=== PATIENT | male | born 1930 | race Caucasian/White ===

== ENCOUNTER → 2016-05-30 | Outpatient (CLI) | payer MEDICARE ==
--- NOTE | 2016-05-30 13:46 | US ---
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 FINDINGS: Liver Length: 16.5 cm Gallbladder Wall: 1.1 cm CBD: 0.3 cm Spleen: 10.5 cm versus 14.[address] Right Kidney: 10.9 c 4.4 x 3.9 cm Left Kidney: 10.3x 6.1 x 5.2 cm Pancreas: No gross abnormality Liver: Overall homogeneous echotexture without focal lesion. Gallbladder: There is wall echo shadow complex compatible with a stone filled gallbladder lumen. Evidence for sonographic Waggoner's sign: No CBD: Within normal limits Spleen: Within normal limits Right Kidney: There is a 3 mm cortical calcification probably relating to scar in the upper pole. No hydronephrosis. Left Kidney: No hydronephrosis. There is a tiny 5 mm cortical cyst in the lower pole. Upper IVC: Not well seen. Abd Aorta: Some scattered atherosclerotic changes seen without evidence for aneurysm. IMPRESSION: 1. Spleen measures within normal limits of size, decreased from CT of 10/16/2014. 2. Stone packed gallbladder.
== END | disposition home or self-care (01) ==
LOC: RADUSWWP 09:10
PROVIDERS: ATTEND Internal Medicine Rheumatology
DX: K80.20 Calculus of gallbladder without cholecystitis without obstruction (principal)
CPT/HCPCS: 76700

== ENCOUNTER 2016-06-20 08:57 | Day surgery (SDC) | payer MEDICARE ==
[2016-06-19 09:20] VITALS: BMI 35.5
[~2016-06-20 08:57] MED LIST: FAMOTIDINE 20 MG/2 ML VIAL IV PRN; HYDROmorphone 1 MG/ML 1 ML SYRINGE IVP PRN; LIDOCAINE 1% 20 ML VIAL (10MG/ML) FOR IV START INTRADERMA PRN; MIDAZOLAM 2 MG/2 ML VIAL IV PRN; ONDANSETRON 4 MG/2 ML VIAL IVP PRN; ceFAZolin 2 GM in SODIUM CHLORIDE 0.9% 100 ML IVPB ONE
[2016-06-20 09:37] VITALS: TEMP 98.1
[2016-06-20] MEDS: LACTATED RINGERS 1,000 ML IV SCH ×2 (09:41→10:06)
[2016-06-20 09:57] LABS: Glucose,Whole Blood 104 mg/dL (75-99)
[2016-06-20 10:00] LABS: INR 3.1 (<1.1); Prothrombin Time 29.9 sec (9.0-12.0)
[2016-06-20] MEDS ORDERED: HYDROCORTISONE SUCCINATE 100 MG/2 ML VIAL IV STA (10:04)
[2016-06-20] MEDS ORDERED: fentaNYL (PF) 50 MCG/ML 2 ML AMP ONE (10:08)
[2016-06-20] MEDS ORDERED: PROPOFOL 10 MG/ML 20 ML VIAL IV ONE (10:08)
[2016-06-20] MEDS ORDERED: HYDROCORTISONE SUCCINATE 100 MG/2 ML VIAL ONE (10:08)
[2016-06-20] MEDS ORDERED: MIDAZOLAM 2 MG/2 ML VIAL ONE (10:08)
[2016-06-20] MEDS ORDERED: LIDOCAINE 1% INJ 10MG/ML (20 ML MDV) ONE (10:08)
[2016-06-20] MEDS ORDERED: KETAMINE 10 MG/ML 20 ML VIAL ONE (10:08)
--- NOTE | 2016-06-20 10:44 | P.PCN ---
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 He is a type II diabetic. He has a profound neuropathy. Operative Findings: On amputation at the base of the toe the bone was fairly healthy in the proximal phalanx and the tissues had good blood supply without evidence of purulence. There was a fracture dislocation in the midportion of the toe. Description of Procedure: With the patient in supine position, under benefit of IV sedation, we prepped and draped in standard fashion. We made a fishmouth incision at the base of the toe leaving enough room to close skin flaps. This was taken directly down to the bone using sharp dissection. The distal portion was removed through the joint. We used a rongeur to take the bone up well above the skin line. Nonviable tendons were excised using sharp dissection. Hemostasis was satisfactory with pressure. The incision was closed with interrupted nylon suture. Hemostasis was satisfactory. Sterile dressings were applied. The patient tolerated the procedure well and was taken to recovery room in stable condition.
[2016-06-20 10:49] VITALS: RESP 18
[2016-06-20 11:19] VITALS: BP 129/68; PULSE 60
[2016-06-20 11:42] LABS: Glucose,Whole Blood 104 mg/dL (75-99)
== END 2016-06-20 11:49 | disposition home or self-care (01) ==
LOC: OR 08:57
PROVIDERS: ATTEND Thoracic Surgery (Cardiothoracic Vascular Surgery)
DX: E11.69 Type 2 diabetes mellitus with other specified complication (principal); E11.42 Type 2 diabetes mellitus with diabetic polyneuropathy; M86.171 Other acute osteomyelitis, right ankle and foot; I50.9 Heart failure, unspecified; I10 Essential (primary) hypertension; E78.5 Hyperlipidemia, unspecified; I48.91 Unspecified atrial fibrillation; M06.9 Rheumatoid arthritis, unspecified; K21.9 Gastro-esophageal reflux disease without esophagitis; Z95.1 Presence of aortocoronary bypass graft; Z95.810 Presence of automatic (implantable) cardiac defibrillator; Z79.82 Long term (current) use of aspirin; Z79.01 Long term (current) use of anticoagulants; Z79.84 Long term (current) use of oral hypoglycemic drugs; Z79.52 Long term (current) use of systemic steroids; Z79.51 Long term (current) use of inhaled steroids; Z79.899 Other long term (current) drug therapy; Z86.14 Personal history of Methicillin resistant Staphylococcus aureus infection; Z87.891 Personal history of nicotine dependence
CPT/HCPCS: 28160; 85610; J2250; J1720; J0690; J2001; J3010; J2704; 99152; 99153

== ENCOUNTER 2016-07-01 13:59 | Inpatient (IN) | payer MEDICARE ==
[2016-07-01] MEDS ORDERED: ACETAMINOPHEN TAB 500 MG TAB PO STA (14:15)
[2016-07-01] MEDS ORDERED: DIPH,PERTUS(ACELL)TETVAC-LF 0.5 ML VIAL IM ONE (14:16)
--- NOTE | 2016-07-01 14:19 | ED ---
General Adult HPI - General Chief complaint: Fall Stated complaint: Fall Time Seen by Provider: 07/01/16 14:09 Source: patient, EMS, RN notes reviewed Mode of arrival: EMS Limitations: no limitations - History of Present Illness Initial comments: Patient is a pleasant 86-year-old male presenting to the emergency department following a fall. Patient states he slid out of his wheelchair. Patient denies any significant injury. Patient denies any head injury or loss of consciousness. Patient did have some bleeding of his left leg. Patient did notice a fever today. Patient denies any upper respiratory symptoms. No cough or difficulty breathing. No abdominal pain. No dysuria. Patient denies any confusion. Patient had a recent right toe amputation. - Related Data Home Medications Medication Instructions Recorded Confirmed Aspirin 81 mg PO DAILY 02/01/14 07/01/16 Folic Acid 1 mg PO HS 02/01/14 07/01/16 Lansoprazole [Prevacid] 30 mg PO DAILY 02/01/14 07/01/16 Tamsulosin HCl 0.4 mg PO HS 02/01/14 07/01/16 Cetirizine HCl [Zyrtec] 10 mg PO DAILY 12/18/15 07/01/16 Methotrexate Sodium (Pf) 25 mg SQ FR 12/19/15 07/01/16 [Methotrexate 25 mg/ml Vial] Carvedilol [Coreg] 3.125 mg PO BID 07/01/16 07/01/16 Cephalexin [Keflex] 500 mg PO Q12HR 07/01/16 07/01/16 Furosemide [Lasix] 40 mg PO DAILY 07/01/16 07/01/16 Levothyroxine Sodium [Synthroid] 25 mcg PO DAILY 07/01/16 07/01/16 Warfarin Sodium [Coumadin] 2.5 mg PO DAILY 07/01/16 07/01/16 Previous Rx's Medication Instructions Recorded metFORMIN HCL [Glucophage] 500 mg PO BID #60 tab 02/11/16 Allergies Allergy/AdvReac Type Severity Reaction Status Date / Time No Known Allergies Allergy Verified 07/01/16 15:12 Review of Systems ROS Statement: Those systems with pertinent positive or pertinent negative responses have been documented in the HPI. ROS Other: All systems not noted in ROS Statement are negative. Constitutional: Reports: fever Eyes: Denies: eye pain ENT: Denies: ear pain, throat pain Respiratory: Denies: cough, dyspnea Cardiovascular: Denies: chest pain Endocrine: Denies: fatigue Gastrointestinal: Denies: abdominal pain Genitourinary: Denies: dysuria Musculoskeletal: Denies: back pain Skin: Denies: rash Neurological: Denies: weakness Past Medical History Past Medical History: Atrial Fibrillation, Heart Failure, Diabetes Mellitus, Hyperlipidemia, Hypertension, Rheumatoid Arthritis (RA), Skin Disorder Additional Past Medical History / Comment(s): SKIN CA, right foot swollen, wound on left lower leg History of Any Multi-Drug Resistant Organisms: MRSA Date of last positivie culture/infection: 05-18-2016 MDRO Source:: left leg Past Surgical History: AICD, Coronary Bypass/CABG, Hernia Repair, Pacemaker Additional Past Surgical History / Comment(s): CABG in 1994 Past Anesthesia/Blood Transfusion Reactions: No Reported Reaction Type of Cardiac Device: AICD Device Placement Date:: 2013 Past Psychological History: No Psychological Hx Reported Smoking Status: Former smoker Past Alcohol Use History: Occasional Additional Past Alcohol Use History / Comment(s): STARTED SMOKING 1949, QUIT 1999, SMOKED 1 PPD Past Drug Use History: None Reported - Past Family History Mother Family Medical History: Cancer Additional Family Medical History / Comment(s): FROM BREAST CANCER AGE 50 Father History Unknown: Yes Additional Family Medical History / Comment(s): PT DID'NT KNOW HIS DAD-LEFT WHEN PT WAS AGE 3 General Exam Limitations: no limitations General appearance: alert, in no apparent distress Head exam: Present: atraumatic, normocephalic Eye exam: Present: normal appearance, PERRL ENT exam: Present: normal oropharynx Neck exam: Absent: tenderness Respiratory exam: Present: normal lung sounds bilaterally Cardiovascular Exam: Present: regular rate, normal rhythm GI/Abdominal exam: Present: soft. Absent: distended, tenderness, guarding, rebound, rigid Extremities exam: Present: other (Right second toe amputation with mild erythema and minimal purulent discharge. Sutures still remain in place.) Back exam: Present: normal inspection. Absent: tenderness Neurological exam: Present: alert, CN II-XII intact. Absent: motor sensory deficit Expanded Motor strength exam: RUE: 5, LUE: 5, RLE: 5, LLE: 5 Psychiatric exam: Present: normal affect, normal mood Skin exam: Present: erythema (Mild near amputation site right second toe), other (Superficial skin avulsion left lower leg.) Course Vital Signs 07/01/16 07/01/16 07/01/16 14:02 15:05 16:39 Temperature 102.3 F H 100.9 F H 100.7 F H Pulse Rate 70 72 75 Respiratory 16 20 20 Rate Blood Pressure 110/58 122/66 114/67 O2 Sat by Pulse 99 97 Oximetry - Reevaluation(s) Reevaluation #1: 07/01/16 15:54 Further history taken from family who states patient was just started on Keflex yesterday for chest congestion. Medical Decision Making - Medical Decision Making Patient reexamined. Patient and family updated. Case was discussed in detail with Dr. Nicole, who will admit for Dr. krishnan with consult for Dr. Jaffe. Patient does meet sepsis criteria. IV antibiotic will be started. Lactic acid less than 2. Admission orders written. - Lab Data Result diagrams: 07/01/16 14:30 07/01/16 14:30 Lab Results 07/01/16 07/01/16 07/01/16 Range/Units 14:25 14:30 14:30 WBC 6.7 (3.8-10.6) k/uL RBC 4.96 (4.30-5.90) m/uL Hgb 13.0 (13.0-17.5) gm/dL Hct 40.7 (39.0-53.0) % MCV 82.0 (80.0-100.0) fL MCH 26.3 (25.0-35.0) pg MCHC 32.1 (31.0-37.0) g/dL RDW 18.0 H (11.5-15.5) % Plt Count 177 (150-450) k/uL Neutrophils % 77 % Lymphocytes % 15 % Monocytes % 6 % Eosinophils % 0 % Basophils % 0 % Neutrophils # 5.2 (1.3-7.7) k/uL Lymphocytes # 1.0 (1.0-4.8) k/uL Monocytes # 0.4 (0-1.0) k/uL Eosinophils # 0.0 (0-0.7) k/uL Basophils # 0.0 (0-0.2) k/uL Anisocytosis Slight Sodium 132 L (137-145) mmol/L Potassium 4.2 (3.5-5.1) mmol/L Chloride 92 L (98-107) mmol/L Carbon Dioxide 27 (22-30) mmol/L Anion Gap 13 mmol/L BUN 20 (9-20) mg/dL Creatinine 0.99 (0.66-1.25) mg/dL Est GFR (MDRD) Af Amer >60 (>60 ml/min/1.73 sqM) Est GFR (MDRD) Non-Af >60 (>60 ml/min/1.73 sqM) Glucose 172 H (74-99) mg/dL Plasma Lactic Acid Tawanda (0.7-2.0) mmol/L Calcium 8.8 (8.4-10.2) mg/dL Total Bilirubin 1.5 H (0.2-1.3) mg/dL AST 40 (17-59) U/L ALT 40 (21-72) U/L Alkaline Phosphatase 92 (38-126) U/L Total Protein 7.2 (6.3-8.2) g/dL Albumin 3.7 (3.5-5.0) g/dL Urine Color Urine Appearance (Clear) Urine pH (5.0-8.0) Ur Specific [place] (1.001-1.035) Urine Protein (Negative) Urine Glucose (UA) (Negative) Urine Ketones (Negative) Urine Blood (Negative) Urine Nitrate (Negative) Urine Bilirubin (Negative) Urine Urobilinogen (<2.0) mg/dL Ur Leukocyte Esterase (Negative) Urine RBC (0-5) /hpf Urine WBC (0-5) /hpf Urine Mucus (None) /hpf Influenza Type A RNA Not Detected (Not Detectd) Influenza Type B (PCR) Not Detected (Not Detectd) 07/01/16 07/01/16 Range/Units 14:30 14:55 WBC (3.8-10.6) k/uL RBC (4.30-5.90) m/uL Hgb (13.0-17.5) gm/dL Hct (39.0-53.0) % MCV (80.0-100.0) fL MCH (25.0-35.0) pg MCHC (31.0-37.0) g/dL RDW (11.5-15.5) % Plt Count (150-450) k/uL Neutrophils % % Lymphocytes % % Monocytes % % Eosinophils % % Basophils % % Neutrophils # (1.3-7.7) k/uL Lymphocytes # (1.0-4.8) k/uL Monocytes # (0-1.0) k/uL Eosinophils # (0-0.7) k/uL Basophils # (0-0.2) k/uL Anisocytosis Sodium (137-145) mmol/L Potassium (3.5-5.1) mmol/L Chloride (98-107) mmol/L Carbon Dioxide (22-30) mmol/L Anion Gap mmol/L BUN (9-20) mg/dL Creatinine (0.66-1.25) mg/dL Est GFR (MDRD) Af Amer (>60 ml/min/1.73 sqM) Est GFR (MDRD) Non-Af (>60 ml/min/1.73 sqM) Glucose (74-99) mg/dL Plasma Lactic Acid Tawanda 1.3 (0.7-2.0) mmol/L Calcium (8.4-10.2) mg/dL Total Bilirubin (0.2-1.3) mg/dL AST (17-59) U/L ALT (21-72) U/L Alkaline Phosphatase (38-126) U/L Total Protein (6.3-8.2) g/dL Albumin (3.5-5.0) g/dL Urine Color Light Yellow Urine Appearance Clear (Clear) Urine pH 7.0 (5.0-8.0) Ur Specific [place] 1.005 (1.001-1.035) Urine Protein Negative (Negative) Urine Glucose (UA) Negative (Negative) Urine Ketones Negative (Negative) Urine Blood Negative (Negative) Urine Nitrate Negative (Negative) Urine Bilirubin Negative (Negative) Urine Urobilinogen <2.0 (<2.0) mg/dL Ur Leukocyte Esterase Small H (Negative) Urine RBC 2 (0-5) /hpf Urine WBC 11 H (0-5) /hpf Urine Mucus Rare H (None) /hpf Influenza Type A RNA (Not Detectd) Influenza Type B (PCR) (Not Detectd) - Radiology Data Radiology results: image reviewed (Chest x-ray shows some interstitial changes. Possible nodule. Possible pneumonia. Foot x-ray does show some irregularity and cannot rule out early osteomyelitis.) Critical Care Time Critical Care Time: Yes Total Critical Care Time: 31 Disposition Clinical Impression: Fall, Weakness, Pneumonia, Sepsis Disposition: ADMITTED IP TO THIS HOSP
[2016-07-01 15:10] LABS: Anisocytosis Slight; Basophils % (A) 0 %; CH 26.6; CHCM 32.5; Eosinophils % (A) 0 %; HCT 40.7 % (39.0-53.0); HDW 2.84; Luc # (Auto) 0.09; Luc % (Auto) 1; Lymphocytes % (A) 15 %; MCH 26.3 pg (25.0-35.0); MCHC 32.1 g/dL (31.0-37.0); Mean Platelet Volume 7.5; Monocytes # (A) 0.4 k/uL (0-1.0); Monocytes % (A) 6 %; Neutrophils # (A) 5.2 k/uL (1.3-7.7); Neutrophils % (A) 77 %; RBC 4.96 m/uL (4.30-5.90); WBC 6.7 k/uL (3.8-10.6); WBC (Perox) 6.32
[2016-07-01 15:15] LABS: ALT 40 U/L (21-72); AST 40 U/L (17-59); Alkaline Phosphatase 92 U/L (38-126); Anion Gap 13 mmol/L; Blood Urea Nitrogen 20 mg/dL (9-20); Calcium 8.8 mg/dL (8.4-10.2); Carbon Dioxide 27 mmol/L (22-30); Chloride 92 mmol/L (98-107); Glucose 172 mg/dL (74-99); Non-African American GFR(MDRD) >60 (>60 ml/min/1.73 sqM); Potassium 4.2 mmol/L (3.5-5.1); Sodium 132 mmol/L (137-145); Total Bilirubin 1.5 mg/dL (0.2-1.3); Total Protein 7.2 g/dL (6.3-8.2)
--- NOTE | 2016-07-01 15:38 | XR ---
EXAMINATION TYPE: XR chest 2V DATE OF EXAM: 07/01/2016 3:32 PM COMPARISON: 02/08/2016 TECHNIQUE: PA and lateral views submitted. HISTORY: Fever FINDINGS: Heart is enlarged. Postoperative change and cardiac device. Multiple right-sided rib deformities are seen is a diffuse interstitial pattern with basilar atelectasis or infiltrate and tiny effusion. 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 Chronic rib deformity seen . IMPRESSION: 1. Interstitial pattern appears increased correlate for mild venous congestion or pneumonitis superim posed on a background of pulmonary fibrosis. 2. Small bilateral effusions and basilar infiltrate. 3. Vague nodularity in the right upper lobe may be postinflammatory and related superimposed structur es. Density is particularly noted posteriorly on the lateral view within the lower lobe. Correlate fo r pneumonia. Neoplastic process not excluded. Follow-up chest x-ray recommended post therapy.
[2016-07-01 16:24] LABS: Appearance,Urine Clear (Clear); Bilirubin,Urine Negative (Negative); Glucose,Urine (UA) Negative (Negative); Ketones,Urine Negative (Negative); Leukocyte Esterase,Urine Small (Negative); Mucus,Urine Rare /hpf; Nitrite,Urine Negative (Negative); Particle Count 550; Protein,Urine Negative (Negative); RBC,Urine 2 /hpf (0-5); Specific Gravity,Urine 1.005 (1.001-1.035); UA Billing (MACRO vs. MICRO) MICRO; Urobilinogen,Urine <2.0 mg/dL (<2.0); WBC,Urine 11 /hpf (0-5)
--- NOTE | 2016-07-01 16:46 | XR ---
EXAMINATION TYPE: XR foot complete RT DATE OF EXAM: 07/01/2016 4:29 PM COMPARISON: 12/20/2015 HISTORY: 86-year-old male with fever, second digit of right foot amputated TECHNIQUE: 3 views FINDINGS: As compared to 12/20/2015, there has been interval osteotomy involving the second proximal most phalan x. However, the osteotomy margin appears irregular especially on the a few with some osteolysis exten ding into the proximal phalangeal base. Tiny plantar calcaneal spur. Type I accessory navicular noted . There is a hallux valgus deformity and suspected previous bunionectomy. Mild diffuse soft tissue sw elling. IMPRESSION: Interval second proximal phalangeal osteotomy. However, the osteotomy margin appears irregular especi ally on the oblique view and osteomyelitis in this location is not excluded. Clinical correlation rec ommended. Findings called to Dr. Rivera in the ER at approximately 4:40 PM.
[2016-07-01] MEDS ORDERED: PNEUMONIA PROTOCOL UTILIZED 1 EACH MISC PO PRN (17:33)
[2016-07-01] MEDS ORDERED: PIPERACILLIN-TAZOBACTAM 3.375 GM in DEXTROSE/WATER 1 50ML.BAG IVPB STA (17:33)
[2016-07-01] MEDS ORDERED: IPRATROPIUM-ALBUTEROL 3 ML NEB INHALATION PRN (17:33)
[2016-07-01] MEDS ORDERED: LEVOFLOXACIN 750MG-D5W PMX 750 MG in DEXTROSE/WATER 1 150ML.BAG IVPB STA (17:33)
[2016-07-01] MEDS: SODIUM CHLORIDE 0.9% 1,000 ML IV SCH ×2 (17:52→23:46)
[2016-07-01] MEDS: ACETAMINOPHEN TAB 325 MG TAB PO PRN (19:23)
[2016-07-01 20:29] LABS: Hemoglobin A1C 6.7 % (4.2-6.1)
[2016-07-01] MEDS: FOLIC ACID 1 MG TAB PO SCH (21:10)
[2016-07-01] MEDS: CARVEDILOL 3.125 MG TAB PO SCH (21:10)
[2016-07-01] MEDS: TAMSULOSIN 0.4 MG CAP.ER.24H PO SCH (21:10)
[2016-07-01 22:36] LABS: Glucose,Whole Blood 133 mg/dL (75-99)
[2016-07-01] MEDS: INSULIN LISPRO (humaLOG) 300 UNIT/3 ML VIAL SQ SCH (22:48)
[2016-07-01] MEDS: PIPERACILLIN-TAZOBACTAM 3.375 GM in DEXTROSE/WATER 1 50ML.BAG IVPB SCH (23:46)
[2016-07-02] MEDS: ACETAMINOPHEN TAB 325 MG TAB PO PRN ×2 (06:18→22:13)
[2016-07-02] MEDS: LEVOTHYROXINE 25 MCG TAB PO SCH (06:18)
[2016-07-02 07:19] LABS: Glucose,Whole Blood 129 mg/dL (75-99)
[2016-07-02] MEDS ORDERED: PANTOPRAZOLE 40 MG TABLET PO SCH (07:30)
[2016-07-02 08:05] LABS: Anisocytosis Slight; CH 25.9; CHCM 31.3; HCT 38.9 % (39.0-53.0); HDW 2.86; HGB 12.1 gm/dL (13.0-17.5); Hypochromasia Moderate; MCH 25.9 pg (25.0-35.0); MCHC 31.2 g/dL (31.0-37.0); Mean Platelet Volume 6.7; RBC 4.68 m/uL (4.30-5.90); RDW 17.7 % (11.5-15.5); WBC 4.4 k/uL (3.8-10.6)
[2016-07-02 08:22] LABS: Anion Gap 11 mmol/L; Blood Urea Nitrogen 24 mg/dL (9-20); Calcium 8.6 mg/dL (8.4-10.2); Carbon Dioxide 27 mmol/L (22-30); Chloride 97 mmol/L (98-107); Glucose 122 mg/dL (74-99); Non-African American GFR(MDRD) >60 (>60 ml/min/1.73 sqM); Potassium 3.6 mmol/L (3.5-5.1); Sodium 135 mmol/L (137-145)
--- NOTE | 2016-07-02 08:31 | XR ---
EXAMINATION TYPE: XR chest 2V DATE OF EXAM: 07/02/2016 7:46 AM COMPARISON: 07/01/2016 TECHNIQUE: PA and lateral views submitted. HISTORY: Fever FINDINGS: Heart is enlarged. Postoperative change and cardiac device. Multiple right-sided rib deformities are seen is a diffuse interstitial pattern with basilar atelectasis or infiltrate and tiny effusion. Condenser Operator santiago deformity of the right clavicle compatible with nonunion fracture. Chronic rib deformity seen. IMPRESSION: 1. Interstitial pattern appears increased correlate for mild venous congestion or pneumonitis superim posed on a background of pulmonary fibrosis. 2. Small bilateral effusions and basilar infiltrate. 3. Vague nodularity in the right upper lobe may be postinflammatory and related superimposed structur es. Neoplastic process not excluded.
[2016-07-02 08:34] LABS: INR 1.5 (<1.1); Prothrombin Time 14.2 sec (9.0-12.0)
[2016-07-02] MEDS: INSULIN LISPRO (humaLOG) 300 UNIT/3 ML VIAL SQ SCH ×4 (08:52→20:06)
[2016-07-02] MEDS: ASPIRIN 81 MG CHEW PO SCH (08:53)
[2016-07-02] MEDS: FUROSEMIDE 40 MG TAB PO SCH (08:53)
[2016-07-02] MEDS: CARVEDILOL 3.125 MG TAB PO SCH ×2 (08:53→17:29)
[2016-07-02] MEDS: PANTOPRAZOLE 40 MG TABLET PO SCH (08:53)
[2016-07-02] MEDS: LORATADINE 10 MG TAB PO SCH (08:53)
[2016-07-02] MEDS: PIPERACILLIN-TAZOBACTAM 3.375 GM in DEXTROSE/WATER 1 50ML.BAG IVPB SCH ×3 (08:57→23:15)
--- NOTE | 2016-07-02 09:52 | P.CON ---
Consult Note - . Consult date: 07/02/16 Assessment/Plan:: I was asked to see this patient who is status post amputation of the right second toe. The patient has no pain in the foot or the leg. He was recently admitted for pneumonia and sepsis. The area of amputation of the right second toe has healed entirely. There is some generalized redness in the area but no purulence. The skin edges are well coapted. Impression: Well-healed right second toe amputation Recommendation: I ordered removal of the sutures. He can progress with walking on the foot. Close observation will be needed. We will see him in a week in the wound center. We will also be scheduling him to see a senior windows engineer or prosthetic specialist for an insert spacer for his right foot.
[2016-07-02] MEDS ORDERED: Potassium Replacement Protocol 1 EACH MISC MISCELLANE PRN (11:12)
[2016-07-02] MEDS ORDERED: Magnesium Replacement Protocol 1 EACH MISC MISCELLANE PRN (11:12)
[2016-07-02 11:34] LABS: Glucose,Whole Blood 157 mg/dL (75-99)
[2016-07-02] MEDS: SODIUM CHLORIDE 0.9% 1,000 ML IV SCH (15:18)
--- NOTE | 2016-07-02 16:47 | P.HPIM ---
History of Present Illness H&P Date: 07/02/16 Chief Complaint: Not feeling well This is a 86-year-old gentleman with past medical history noted below who presented to the emergency room with worsening cough and fevers. Patient had recently had an amputation of the right second toe secondary to gangrene. For the past few days he has been having worsening cough that was productive of yellowish and occasionally greenish sputum. His said that he was not acting like himself. He was very weak and at one point he slid out of the chair to the ground. He denies any head trauma. In the emergency room he was found to have a high-grade temperature of 102.3. He was started on broad- spectrum antibiotic. Chest x-ray showed evidence of possible pneumonia involving the right upper lobe. Review of Systems Review of system: 14 points review of systems were obtained and were negative except to what were mentioned in the HPI. Past Medical History Past Medical History: Atrial Fibrillation, Heart Failure, Diabetes Mellitus, Hyperlipidemia, Hypertension, Prostate Disorder, Rheumatoid Arthritis (RA), Skin Disorder Additional Past Medical History / Comment(s): NEUROPATHY, UTI, SKIN CA, OSTEOMYELITIS HAD RT 2ND TOE AMPUTATED ON 06-20-16 AND PER HAS AN APPT AT [facility] TO SEE IF SUTURES CAN BE TAKEN OUT. ,WEARS DEPENDS(ON DIURETICS) History of Any Multi-Drug Resistant Organisms: MRSA Date of last positivie culture/infection: 05-18-2016/05-26-16 MDRO Source:: left leg Past Surgical History: AICD, Coronary Bypass/CABG, Hernia Repair, Pacemaker Additional Past Surgical History / Comment(s): CABG in 1994, RT 2ND TOE AMPUTATED Past Anesthesia/Blood Transfusion Reactions: No Reported Reaction Type of Cardiac Device: AICD Device Placement Date:: 2013 Past Psychological History: No Psychological Hx Reported Additional Psychological History / Comment(s): DEMENTIA Smoking Status: Former smoker Past Alcohol Use History: Occasional Additional Past Alcohol Use History / Comment(s): STARTED SMOKING 1949, QUIT 1999, SMOKED 1 PPD Past Drug Use History: None Reported - Past Family History Mother Family Medical History: Cancer Additional Family Medical History / Comment(s): FROM BREAST CANCER AGE 50 Father History Unknown: Yes Additional Family Medical History / Comment(s): PT DID'NT KNOW HIS DAD-LEFT WHEN PT WAS AGE 3 Medications and Allergies Home Medications Medication Instructions Recorded Confirmed Type Aspirin 81 mg PO DAILY 02/01/14 07/01/16 History Folic Acid 1 mg PO HS 02/01/14 07/01/16 History Lansoprazole [Prevacid] 30 mg PO DAILY 02/01/14 07/01/16 History Tamsulosin HCl 0.4 mg PO HS 02/01/14 07/01/16 History Cetirizine HCl [Zyrtec] 10 mg PO DAILY 12/18/15 07/01/16 History Methotrexate Sodium (Pf) 25 mg SQ FR 12/19/15 07/01/16 History [Methotrexate 25 mg/ml Vial] Carvedilol [Coreg] 3.125 mg PO BID 07/01/16 07/01/16 History Cephalexin [Keflex] 500 mg PO Q12HR 07/01/16 07/01/16 History Furosemide [Lasix] 40 mg PO DAILY 07/01/16 07/01/16 History Levothyroxine Sodium [Synthroid] 25 mcg PO DAILY 07/01/16 07/01/16 History Warfarin Sodium [Coumadin] 2.5 mg PO DAILY 07/01/16 07/01/16 History Allergies Allergy/AdvReac Type Severity Reaction Status Date / Time No Known Allergies Allergy Verified 07/01/16 15:12 Physical Exam Vitals: Vital Signs Temp Pulse Pulse Resp BP BP BP 07/02/16 15:00 97.8 F 66 16 140/79 07/02/16 08:00 60 16 07/02/16 07:00 97.5 F L 60 16 128/90 07/02/16 00:00 62 17 07/01/16 22:18 97.1 F L 62 17 117/67 07/01/16 18:31 100.2 F H 67 16 122/79 07/01/16 17:53 99.7 F H 78 20 118/62 Pulse Ox 07/02/16 15:00 94 L 07/02/16 08:00 07/02/16 07:00 93 L 07/02/16 00:00 07/01/16 22:18 98 07/01/16 18:31 96 07/01/16 17:53 96 Intake and Output 07/02/16 07/02/16 07/02/16 06:59 14:59 22:59 Intake Total 480 Balance 480 Intake: Oral 480 Other: # Voids 3 2 Weight 99.36 kg General: The patient is awake and alert, in no distress, and does not appear acutely ill. Eye: extra-ocular movements are intact; there is normal conjunctiva bilaterally. . Neck: The neck is supple, there is no tenderness or JVD. Cardiovascular: Normal S1-S2, no S3-S4, no murmurs. Respiratory: Lungs clear to auscultation bilaterally with no wheezes rhonchi or rales. Gastrointestinal: Abdomen is soft, nontender, nondistended, with no organomegaly. . Musculoskeletal: There is no pedal edema. Neurological: There are no obvious motor or sensory deficits. Speech is normal. Skin: Skin is warm and dry and no rashes or lesions are noted. Results CBC & Chem 7: 07/02/16 07:07 07/02/16 07:07 Labs: Abnormal Lab Results - Last 24 Hours (Table) 07/01/16 07/01/16 07/02/16 Range/Units 19:11 22:33 07:02 Hgb (13.0-17.5) gm/dL Hct (39.0-53.0) % RDW (11.5-15.5) % PT (9.0-12.0) sec Sodium (137-145) mmol/L Chloride (98-107) mmol/L BUN (9-20) mg/dL Glucose (74-99) mg/dL POC Glucose (mg/dL) 133 H 129 H (75-99) mg/dL Hemoglobin A1c 6.7 H (4.2-6.1) % 07/02/16 07/02/16 07/02/16 Range/Units 07:07 07:07 07:07 Hgb 12.1 L (13.0-17.5) gm/dL Hct 38.9 L (39.0-53.0) % RDW 17.7 H (11.5-15.5) % PT 14.2 H (9.0-12.0) sec Sodium 135 L (137-145) mmol/L Chloride 97 L (98-107) mmol/L BUN 24 H (9-20) mg/dL Glucose 122 H (74-99) mg/dL POC Glucose (mg/dL) (75-99) mg/dL Hemoglobin A1c (4.2-6.1) % 07/02/16 Range/Units 11:31 Hgb (13.0-17.5) gm/dL Hct (39.0-53.0) % RDW (11.5-15.5) % PT (9.0-12.0) sec Sodium (137-145) mmol/L Chloride (98-107) mmol/L BUN (9-20) mg/dL Glucose (74-99) mg/dL POC Glucose (mg/dL) 157 H (75-99) mg/dL Hemoglobin A1c (4.2-6.1) % Thrombosis Risk Factor Assmnt - Choose All That Apply Any of the Below Risk Factors Present?: Yes Each Factor Represents 1 point: Obesity (BMI >25), Sepsis (< 1month), Serious lung disease incl. pneumonia (< 1month) Other Risk Factors: Yes Each Risk Factor Represents 2 Points: Malignancy Each Risk Factor Represents 3 Points: Age 75 years or older Other congenital or acquired thrombophilia - If yes, enter type in comment: No Thrombosis Risk Factor Assessment Total Risk Factor Score: 8 Thrombosis Risk Factor Assessment Level: High Risk Assessment and Plan Plan: 1. Right upper lobe pneumonia 2. 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 Right upper lobe nodularity may represent underlying pneumonia follow-up x- ray required to ensure clearance may consider computed tomography scan for further evaluation and rule out malignancy 4. Chronic atrial fibrillation on anticoagulation with Coumadin 5. Type 2 diabetes mellitus: Well-controlled continue sliding scale insulin 6. Underlying congestive heart failure with no evidence of exacerbation Patient was started on broad-spectrum antibiotic. He was seen and evaluated in vascular surgery and amputation site appeared healing well. There's concerning findings on the foot x-ray suspected for underlying osteomyelitis and I'm not sure if it's expected after the amputation. May consider MRI for further evaluation. I will discuss with infectious disease further. We will continue current regimen otherwise. Gentle IV fluid hydration. Awaiting blood culture. Repeat lab work in the morning.
[2016-07-02 17:12] LABS: Glucose,Whole Blood 225 mg/dL (75-99)
[2016-07-02] MEDS: WARFARIN 2.5 MG TAB PO SCH (17:29)
[2016-07-02] MEDS: LEVOFLOXACIN 750 MG TAB PO SCH (17:33)
[2016-07-02] MEDS ORDERED: LEVOFLOXACIN 750MG-D5W PMX 750 MG in DEXTROSE/WATER 1 150ML.BAG IVPB SCH (18:00)
[2016-07-02 19:58] LABS: Glucose,Whole Blood 148 mg/dL (75-99)
[2016-07-02] MEDS: FOLIC ACID 1 MG TAB PO SCH (20:05)
[2016-07-02] MEDS: MELATONIN 3 MG TABLET PO SCH (20:05)
[2016-07-02] MEDS: TAMSULOSIN 0.4 MG CAP.ER.24H PO SCH (20:05)
[2016-07-03] MEDS: LEVOTHYROXINE 25 MCG TAB PO SCH (06:08)
[2016-07-03] MEDS: SODIUM CHLORIDE 0.9% 1,000 ML IV SCH ×2 (06:09→12:16)
[2016-07-03 07:42] LABS: Glucose,Whole Blood 124 mg/dL (75-99)
[2016-07-03] MEDS: INSULIN LISPRO (humaLOG) 300 UNIT/3 ML VIAL SQ SCH ×4 (08:02→20:39)
[2016-07-03] MEDS: ASPIRIN 81 MG CHEW PO SCH (08:38)
[2016-07-03] MEDS: PANTOPRAZOLE 40 MG TABLET PO SCH (08:39)
[2016-07-03] MEDS: FUROSEMIDE 40 MG TAB PO SCH (08:39)
[2016-07-03] MEDS: CARVEDILOL 3.125 MG TAB PO SCH ×2 (08:39→17:41)
[2016-07-03] MEDS: LORATADINE 10 MG TAB PO SCH (08:39)
[2016-07-03] MEDS: PIPERACILLIN-TAZOBACTAM 3.375 GM in DEXTROSE/WATER 1 50ML.BAG IVPB SCH ×3 (09:19→23:17)
[2016-07-03 11:42] LABS: Anisocytosis Slight; Basophils % (A) 0 %; CH 25.9; CHCM 31.2; Eosinophils # (A) 0.1 k/uL (0-0.7); Eosinophils % (A) 1 %; HCT 41.7 % (39.0-53.0); HDW 2.86; HGB 12.9 gm/dL (13.0-17.5); Hypochromasia Moderate; Luc # (Auto) 0.15; Luc % (Auto) 3; Lymphocytes # (A) 1.4 k/uL (1.0-4.8); Lymphocytes % (A) 29 %; MCH 25.9 pg (25.0-35.0); MCV 83.5 fL (80.0-100.0); Mean Platelet Volume 7.7; Monocytes # (A) 0.3 k/uL (0-1.0); Monocytes % (A) 6 %; Neutrophils # (A) 2.8 k/uL (1.3-7.7); Neutrophils % (A) 60 %; RBC 4.99 m/uL (4.30-5.90); RDW 17.6 % (11.5-15.5); WBC 4.8 k/uL (3.8-10.6); WBC (Perox) 4.54
[2016-07-03 11:52] LABS: Anion Gap 11 mmol/L; Blood Urea Nitrogen 23 mg/dL (9-20); Calcium 8.3 mg/dL (8.4-10.2); Carbon Dioxide 27 mmol/L (22-30); Chloride 95 mmol/L (98-107); Glucose 214 mg/dL (74-99); Magnesium 1.8 mg/dL (1.6-2.3); Non-African American GFR(MDRD) 58 (>60 ml/min/1.73 sqM); Potassium 3.7 mmol/L (3.5-5.1); Sodium 133 mmol/L (137-145)
[2016-07-03 12:06] LABS: Glucose,Whole Blood 192 mg/dL (75-99)
[2016-07-03 12:37] LABS: INR 1.4 (<1.1); Prothrombin Time 13.4 sec (9.0-12.0)
--- NOTE | 2016-07-03 14:32 | P.PN ---
Objective - Vital Signs Vital signs: Vital Signs Temp 98.6 F 07/03/16 07:00 Pulse 69 07/03/16 07:00 Resp 20 07/03/16 07:00 BP 122/69 07/03/16 07:00 Pulse Ox 96 07/03/16 07:00 Intake & Output 07/02/16 07/03/16 07/03/16 18:59 06:59 18:59 Intake Total 50 Balance 50 Weight 99.36 kg Intake: IV 50 Piperacillin-Tazobactam 3 50 .375 gm In Dextrose/Water 1 50ml.bag @ 12.5 mls/hr IVPB Q8HR [facility] Rx#: [id number] Other: # Voids 2 4 - Labs CBC & Chem 7: 07/03/16 11:23 07/03/16 11:23 Labs: Abnormal Lab Results - Last 24 Hours (Table) 07/02/16 07/02/16 07/03/16 Range/Units 17:08 19:44 07:23 Hgb (13.0-17.5) gm/dL RDW (11.5-15.5) % PT (9.0-12.0) sec Sodium (137-145) mmol/L Chloride (98-107) mmol/L BUN (9-20) mg/dL Glucose (74-99) mg/dL POC Glucose (mg/dL) 225 H 148 H 124 H (75-99) mg/dL Calcium (8.4-10.2) mg/dL 07/03/16 07/03/16 07/03/16 Range/Units 11:23 11:23 11:23 Hgb 12.9 L (13.0-17.5) gm/dL RDW 17.6 H (11.5-15.5) % PT 13.4 H (9.0-12.0) sec Sodium 133 L (137-145) mmol/L Chloride 95 L (98-107) mmol/L BUN 23 H (9-20) mg/dL Glucose 214 H (74-99) mg/dL POC Glucose (mg/dL) (75-99) mg/dL Calcium 8.3 L (8.4-10.2) mg/dL 07/03/16 Range/Units 12:05 Hgb (13.0-17.5) gm/dL RDW (11.5-15.5) % PT (9.0-12.0) sec Sodium (137-145) mmol/L Chloride (98-107) mmol/L BUN (9-20) mg/dL Glucose (74-99) mg/dL POC Glucose (mg/dL) 192 H (75-99) mg/dL Calcium (8.4-10.2) mg/dL Microbiology - Last 24 Hours (Table) 07/01/16 23:30 Gram Stain - Preliminary Sputum 07/01/16 19:11 Blood Culture - Preliminary Blood No Growth after 24 hours Assessment and Plan Plan: 1. Right upper lobe pneumonia 2. 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 Right upper lobe nodularity may represent underlying pneumonia follow-up x- ray ordered for am. may consider computed tomography scan for further evaluation and rule out malignancy 4. Chronic atrial fibrillation on anticoagulation with Coumadin 5. Type 2 diabetes mellitus: Well-controlled continue sliding scale insulin 6. Underlying congestive heart failure with no evidence of exacerbation Patient was started on broad-spectrum antibiotic. He was seen and evaluated in vascular surgery and amputation site appeared healing well. There's concerning findings on the foot x-ray suspected for underlying osteomyelitis and I'm not sure if it's expected after the amputation. May consider MRI for further evaluation. I will discuss with infectious disease further. We will continue current regimen otherwise. Gentle IV fluid hydration. Awaiting blood culture. Repeat lab work in the morning.
[2016-07-03 17:04] LABS: Glucose,Whole Blood 125 mg/dL (75-99)
[2016-07-03] MEDS: LEVOFLOXACIN 750 MG TAB PO SCH (17:40)
[2016-07-03] MEDS: WARFARIN 2.5 MG TAB PO SCH (17:40)
[2016-07-03] MEDS: FOLIC ACID 1 MG TAB PO SCH (20:40)
[2016-07-03] MEDS: MELATONIN 3 MG TABLET PO SCH (20:40)
[2016-07-03] MEDS: TAMSULOSIN 0.4 MG CAP.ER.24H PO SCH (20:40)
[2016-07-03 20:41] LABS: Glucose,Whole Blood 164 mg/dL (75-99)
--- NOTE | 2016-07-03 23:06 | P.CONS ---
History of Present Illness - Reason for Consult Consult date: 07/03/16 - Chief Complaint diabetic foot, pneumonia - History of Present Illness 86-year-old male who has a history of diabetes developed evidence of a diabetic foot infection. 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 The foot has been improving. However presents to Hospital with significant generalized weakness and a fever 102.3. concerns to pneumonia and is been treated with antibiotic therapy. Infectious disease consultation requested regarding the fever and the difficulty with the diabetic foot wound. He's also had pneumonia. His fevers fortunately improving. He is less short of breath. His relates that he is definitely improved from the time of admission. He still is somewhat weak but improving. He does relate to some ongoing wheezing. He or does not have significant sputum production. He does not have hemoptysis. Review of Systems HEENT:Denies headache or acute visual change. Denies sinus or mouth discomforts. Denies neck stiffness or pain. Denies significant oral cavity pain. Denies difficulty on swallowing. Lungs: positive shortness of breath positive cough no significant sputum production Cardiovascular: Denies significant chest pain, chest wall pain, orthopnea, dyspnea on exertion Gastrointestinal:Denies nausea, vomiting, diarrhea, constipation, hematemesis, melena, hematochezia. No no significant change of bowel habit noticed. Musculoskeletal: denies significant myalgias or arthralgias. No new joint swelling. Denies new back pain. Skin: Denies new rash or lesions. No new ulcers or wounds are related.. Neuro: Denies headache or no visual change with vision is poor he is not able to drive any fur Denies any new onset weakness or difficulty with ambulation. Denies falls or seizures. Psychiatric:Denies anxiety or depression. Endocrine: progressive fatigue over time but weight is been stable Past Medical History Past Medical History: Atrial Fibrillation, Heart Failure, Diabetes Mellitus, Hyperlipidemia, Hypertension, Prostate Disorder, Rheumatoid Arthritis (RA), Skin Disorder Additional Past Medical History / Comment(s): NEUROPATHY, UTI, SKIN CA, OSTEOMYELITIS HAD RT 2ND TOE AMPUTATED ON 06-20-16 AND PER HAS AN APPT AT [facility] TO SEE IF SUTURES CAN BE TAKEN OUT. ,WEARS DEPENDS(ON DIURETICS) History of Any Multi-Drug Resistant Organisms: MRSA Year Discovered:: 05-18-2016/05-26-16 MDRO Source:: left leg Past Surgical History: AICD, Coronary Bypass/CABG, Hernia Repair, Pacemaker Additional Past Surgical History / Comment(s): CABG in 1994, RT 2ND TOE AMPUTATED Past Anesthesia/Blood Transfusion Reactions: No Reported Reaction Type of Cardiac Device: AICD Device Placement Date:: 2013 Past Psychological History: No Psychological Hx Reported Additional Psychological History / Comment(s): DEMENTIA. 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 Retired [employer]. No experience. No tobacco or alchol use Smoking Status: Former smoker Past Alcohol Use History: Occasional Additional Past Alcohol Use History / Comment(s): STARTED SMOKING 1949, QUIT 1999, SMOKED 1 PPD Past Drug Use History: None Reported - Past Family History Mother Family Medical History: Cancer Additional Family Medical History / Comment(s): FROM BREAST CANCER AGE 50 Father History Unknown: Yes Additional Family Medical History / Comment(s): PT DID'NT KNOW HIS DAD-LEFT WHEN PT WAS AGE 3 Medications and Allergies Home Medications and Allergies Comment(s): Current Medications Acetaminophen (Tylenol Tab) 650 mg PO Q4HR PRN PRN Reason: Fever and/ or Pain Last Admin: 07/02/16 22:13 Dose: 650 mg Albuterol/Ipratropium (Duoneb 0.5 Mg-3 Mg/3 Ml Soln) 3 ml INHALATION RT-Q4H PRN PRN Reason: shortness of breath Aspirin (Aspirin) 81 mg PO DAILY [facility] Last Admin: 07/03/16 08:38 Dose: 81 mg Carvedilol (Coreg) 3.125 mg PO BID-W/MEALS [facility] Last Admin: 07/03/16 17:41 Dose: 3.125 mg Folic Acid (Folic Acid) 1 mg PO HS [facility] Last Admin: 07/03/16 20:40 Dose: 1 mg Furosemide (Lasix) 40 mg PO DAILY [facility] Last Admin: 07/03/16 08:39 Dose: 40 mg Piperacillin/Tazobactam/ (Dextrose 3.375 gm/ IV Solution) 50 mls @ 12.5 mls/hr IVPB Q8HR [facility] Stop: 07/12/16 00:01 Last Admin: 07/03/16 17:41 Dose: 12.5 mls/hr Sodium Chloride (Saline 0.9%) 1,000 mls @ 100 mls/hr IV .Q10H [facility] Last Admin: 07/03/16 12:16 Dose: Not Given Insulin Human Lispro (Humalog) 0 unit SQ [facility] PRN Reason: Protocol Last Admin: 07/03/16 20:39 Dose: 1 unit Levofloxacin (Levaquin) 750 mg PO Q24H [facility] Stop: 07/14/16 18:01 Last Admin: 07/03/16 17:40 Dose: 750 mg Levothyroxine Sodium (Synthroid) 25 mcg PO DAILY@0630 [facility] Last Admin: 07/03/16 06:08 Dose: 25 mcg Loratadine (Claritin) 10 mg PO DAILY [facility] Last Admin: 07/03/16 08:39 Dose: 10 mg Melatonin (Melatonin) 3 mg PO [facility] Last Admin: 07/03/16 20:40 Dose: 3 mg Miscellaneous Information (Pneumonia Protocol Utilized) 1 each PO ONCE PRN PRN Reason: Per Protocol Miscellaneous Information (Magnesium Per Protocol) 1 each MISCELLANE DAILY PRN ; Protocol PRN Reason: Per Protocol Miscellaneous Information (Potassium Per Protocol) 1 each MISCELLANE DAILY PRN ; Protocol PRN Reason: Per Protocol Pantoprazole Sodium (Protonix) 40 mg PO AC-BRKFST [facility] Last Admin: 07/03/16 08:39 Dose: 40 mg Tamsulosin HCl (Flomax) 0.4 mg PO [facility] Last Admin: 07/03/16 20:40 Dose: 0.4 mg Warfarin Sodium (Coumadin) 2.5 mg PO DAILY@1800 [facility] Last Admin: 07/03/16 17:40 Dose: 2.5 mg Home Medications Medication Instructions Recorded Confirmed Type Aspirin 81 mg PO DAILY 02/01/14 07/01/16 History Folic Acid 1 mg PO 02/01/14 07/01/16 History Lansoprazole [Prevacid] 30 mg PO DAILY 02/01/14 07/01/16 History Tamsulosin HCl 0.4 mg PO 02/01/14 07/01/16 History Cetirizine HCl [Zyrtec] 10 mg PO DAILY 12/18/15 07/01/16 History Methotrexate Sodium (Pf) 25 mg SQ FR 12/19/15 07/01/16 History [Methotrexate 25 mg/ml Vial] Carvedilol [Coreg] 3.125 mg PO BID 07/01/16 07/01/16 History Cephalexin [Keflex] 500 mg PO Q12HR 07/01/16 07/01/16 History Furosemide [Lasix] 40 mg PO DAILY 07/01/16 07/01/16 History Levothyroxine Sodium [Synthroid] 25 mcg PO DAILY 07/01/16 07/01/16 History Warfarin Sodium [Coumadin] 2.5 mg PO DAILY 07/01/16 07/01/16 History Allergies Allergy/AdvReac Type Severity Reaction Status Date / Time No Known Allergies Allergy Verified 07/01/16 15:12 Physical Exam Vitals: Vital Signs Temp Pulse Resp BP Pulse Ox 07/03/16 22:11 97.7 F 77 18 141/81 07/03/16 17:00 99 07/03/16 15:00 98.4 F 74 16 139/74 99 07/03/16 08:00 20 07/03/16 07:00 98.6 F 69 20 122/69 96 Intake and Output 07/03/16 07/03/16 07/03/16 06:59 14:59 22:59 Intake Total 50 50 240 Balance 50 50 240 Intake: IV 50 50 Piperacillin-Tazobactam 3 50 50 .375 gm In Dextrose/Water 1 50ml.bag @ 12.5 mls/hr IVPB Q8HR [facility] Rx#: [id number] Oral 240 Other: # Voids 4 1 Weight 99.36 kg 99.5 kg Patient Weight 07/04/16 06:59 Weight 99.5 kg pleasant 86-year-old male is in no distress. Appears younger than his stated age. HEENT: Anicteric conjunctiva are pink and moist nasal mucosa grossly intact without significant lesions, there is no thrush.denture Neck: The neck is supple without significant lymphadenopathy or thyromegaly. Lungs: symmetrical air entry. Wheezes are scattered through the lung caro No bronchial sounds. no egophony Heart: irregular audible S1-S2, no S3 soft S4. There is no significant murmur click or rub, PMI was nondisplaced. Abdomen: Positive bowel sounds soft and nontender without palpable masses or organomegaly. There was no guarding or rebound. Extremities: The upper extremities have excellent pulses they are symmetric, no significant petechiae or telangiectasia. No splinter hemorrhages were noted. The lower extremities are free from significant edema. The peripheral pulses were 2+ and symmetric. Neuro: Awake alert oriented to person place and time. There are no acute new gross focal sensory motor deficits.patient however has poor vision. Results CBC & Chem 7: 07/03/16 11:23 07/03/16 11:23 Labs: Abnormal Lab Results - Last 24 Hours (Table) 07/03/16 07/03/16 07/03/16 Range/Units 07:23 11:23 11:23 Hgb 12.9 L (13.0-17.5) gm/dL RDW 17.6 H (11.5-15.5) % PT 13.4 H (9.0-12.0) sec Sodium (137-145) mmol/L Chloride (98-107) mmol/L BUN (9-20) mg/dL Glucose (74-99) mg/dL POC Glucose (mg/dL) 124 H (75-99) mg/dL Calcium (8.4-10.2) mg/dL 07/03/16 07/03/16 07/03/16 Range/Units 11:23 12:05 17:03 Hgb (13.0-17.5) gm/dL RDW (11.5-15.5) % PT (9.0-12.0) sec Sodium 133 L (137-145) mmol/L Chloride 95 L (98-107) mmol/L BUN 23 H (9-20) mg/dL Glucose 214 H (74-99) mg/dL POC Glucose (mg/dL) 192 H 125 H (75-99) mg/dL Calcium 8.3 L (8.4-10.2) mg/dL 07/03/16 Range/Units 20:39 Hgb (13.0-17.5) gm/dL RDW (11.5-15.5) % PT (9.0-12.0) sec Sodium (137-145) mmol/L Chloride (98-107) mmol/L BUN (9-20) mg/dL Glucose (74-99) mg/dL POC Glucose (mg/dL) 164 H (75-99) mg/dL Calcium (8.4-10.2) mg/dL Microbiology - Last 24 Hours (Table) 07/01/16 19:11 Blood Culture - Preliminary Blood No Growth after 48 hours 07/01/16 23:30 Gram Stain - Preliminary Sputum Laboratory Results WBC 4.8 k/uL (3.8-10.6) 07/03/16 11:23 RBC 4.99 m/uL (4.30-5.90) 07/03/16 11:23 Hgb 12.9 gm/dL (13.0-17.5) L 07/03/16 11:23 Hct 41.7 % (39.0-53.0) 07/03/16 11:23 MCV 83.5 fL (80.0-100.0) 07/03/16 11:23 MCH 25.9 pg (25.0-35.0) 07/03/16 11:23 MCHC 31.0 g/dL (31.0-37.0) 07/03/16 11:23 RDW 17.6 % (11.5-15.5) H 07/03/16 11:23 Plt Count 152 k/uL (150-450) 07/03/16 11:23 Neutrophils % 60 % 07/03/16 11:23 Lymphocytes % 29 % 07/03/16 11:23 Monocytes % 6 % 07/03/16 11:23 Eosinophils % 1 % 07/03/16 11:23 Basophils % 0 % 07/03/16 11:23 Neutrophils # 2.8 k/uL (1.3-7.7) 07/03/16 11:23 Lymphocytes # 1.4 k/uL (1.0-4.8) 07/03/16 11:23 Monocytes # 0.3 k/uL (0-1.0) 07/03/16 11:23 Eosinophils # 0.1 k/uL (0-0.7) 07/03/16 11:23 Basophils # 0.0 k/uL (0-0.2) 07/03/16 11:23 Hypochromasia Moderate 07/03/16 11:23 Anisocytosis Slight 07/03/16 11:23 PT 13.4 sec (9.0-12.0) H 07/03/16 11:23 INR 1.4 (<1.1) 07/03/16 11:23 Sodium 133 mmol/L (137-145) L 07/03/16 11:23 Potassium 3.7 mmol/L (3.5-5.1) 07/03/16 11:23 Chloride 95 mmol/L (98-107) L 07/03/16 11:23 Carbon Dioxide 27 mmol/L (22-30) 07/03/16 11:23 Anion Gap 11 mmol/L 07/03/16 11:23 BUN 23 mg/dL (9-20) H 07/03/16 11:23 Creatinine 1.20 mg/dL (0.66-1.25) 07/03/16 11:23 Est GFR (MDRD) Af Amer >60 (>60 ml/min/1.73 sqM) 07/03/16 11:23 Est GFR (MDRD) Non-Af 58 (>60 ml/min/1.73 sqM) 07/03/16 11:23 Glucose 214 mg/dL (74-99) H 07/03/16 11:23 POC Glucose (mg/dL) 164 mg/dL (75-99) H 07/03/16 20:39 POC Glu Customer Service Voice ID Gloria Curry 07/03/16 20:[address] Glu mg/dL 146 mg/dL 07/01/16 19:11 Hemoglobin A1c 6.7 % (4.2-6.1) H 07/01/16 19:11 Plasma Lactic Acid Tawanda 1.3 mmol/L (0.7-2.0) 07/01/16 14:30 Calcium 8.3 mg/dL (8.4-10.2) L 07/03/16 11:23 Magnesium 1.8 mg/dL (1.6-2.3) 07/03/16 11:23 Total Bilirubin 1.5 mg/dL (0.2-1.3) H 07/01/16 14:30 AST 40 U/L (17-59) 07/01/16 14:30 ALT 40 U/L (21-72) 07/01/16 14:30 Alkaline Phosphatase 92 U/L (38-126) 07/01/16 14:30 Total Protein 7.2 g/dL (6.3-8.2) 07/01/16 14:30 Albumin 3.7 g/dL (3.5-5.0) 07/01/16 14:30 Urine Color Light Yellow 07/01/16 14:55 Urine Appearance Clear (Clear) 07/01/16 14:55 Urine pH 7.0 (5.0-8.0) 07/01/16 14:55 Ur Specific [place] 1.005 (1.001-1.035) 07/01/16 14:55 Urine Protein Negative (Negative) 07/01/16 14:55 Urine Glucose (UA) Negative (Negative) 07/01/16 14:55 Urine Ketones Negative (Negative) 07/01/16 14:55 Urine Blood Negative (Negative) 07/01/16 14:55 Urine Nitrate Negative (Negative) 07/01/16 14:55 Urine Bilirubin Negative (Negative) 07/01/16 14:55 Urine Urobilinogen <2.0 mg/dL (<2.0) 07/01/16 14:55 Ur Leukocyte Esterase Small (Negative) H 07/01/16 14:55 Urine RBC 2 /hpf (0-5) 07/01/16 14:55 Urine WBC 11 /hpf (0-5) H 07/01/16 14:55 Urine Mucus Rare /hpf (None) H 07/01/16 14:55 Influenza Type A RNA Not Detected (Not Detectd) 07/01/16 14:25 Influenza Type B (PCR) Not Detected (Not Detectd) 07/01/16 14:25 Microbiology 07/01/16 19:11 Blood Blood Culture - Preliminary No Growth after 48 hours 07/01/16 14:30 Blood Blood Culture - Preliminary No Growth after 48 hours 07/01/16 14:12 Toe - Right Second Gram Stain - Final 07/01/16 14:12 Toe - Right Second Wound Culture - Final Escherichia coli Methicillin resist S. aureus 07/01/16 23:30 Sputum Gram Stain - Preliminary 07/01/16 14:55 Urine,Voided Urine Culture - Final Comments: foot x-rays reviewed. Evidence of Amputation through the proximal second is noted and healing well. Chest x-ray: image reviewed Assessment and Plan (1) Type 2 diabetes mellitus with right diabetic foot infection Narrative/Plan: 86-year-old male presents to Hospital after developing significant weakness and having a fall. He was brought into the emergency center where he had evidence of a temperature 2.3. The patient was admitted with concerns to sepsis. He had had recent amputation to the right foot second distal toe. For a diabetic foot infection. Also evidence of abnormal chest x-ray and pneumonia at admission. The patient is definitely feeling better. His fever has resolved. His responded well to current respiratory treatments and antibiotic therapy. Is noted on the exam the foot is healing well. There is some minimal residual edema to the amputation site. His however well approximated without expressible purulence. Suture was removed and it was some bleeding from the suture removal but no other drainage is noted. Wound culture as noted with E. coli and MRSA. Patient is responding well to current antibiotic therapy. Will likely be transitioned to home tomorrow and will need to be placed on oral antibiotic therapy. He is anticoagulated. This will be some challenge for his antibiotic therapy for home. However with close monitoring trimethoprim sulfamethoxazole can be utilized. His creatinine is stable and his potassium is normal. We need to have close monitoring of his PT and INR. The toe in the abrasion to the left pretibial area should be treated with the opticell silver which will be changed every Thursday, orders for home care given. Status: Acute (2) Pneumonia Status: Acute (3) Weakness Status: Acute
[2016-07-04] MEDS: SODIUM CHLORIDE 0.9% 1,000 ML IV SCH ×3 (05:04→21:14)
[2016-07-04] MEDS: LEVOTHYROXINE 25 MCG TAB PO SCH (06:11)
[2016-07-04 07:22] LABS: Glucose,Whole Blood 131 mg/dL (75-99)
[2016-07-04] MEDS: PANTOPRAZOLE 40 MG TABLET PO SCH (07:33)
[2016-07-04] MEDS: CARVEDILOL 3.125 MG TAB PO SCH ×2 (07:33→18:07)
[2016-07-04] MEDS: FUROSEMIDE 40 MG TAB PO SCH (07:33)
[2016-07-04] MEDS: ACETAMINOPHEN TAB 325 MG TAB PO PRN ×2 (07:33→14:17)
[2016-07-04] MEDS: ASPIRIN 81 MG CHEW PO SCH (07:33)
[2016-07-04] MEDS: LORATADINE 10 MG TAB PO SCH (07:33)
[2016-07-04] MEDS: PIPERACILLIN-TAZOBACTAM 3.375 GM in DEXTROSE/WATER 1 50ML.BAG IVPB SCH ×3 (07:34→23:50)
[2016-07-04 07:35] LABS: Anisocytosis Slight; Basophils % (A) 0 %; CH 25.8; Eosinophils % (A) 1 %; HCT 37.8 % (39.0-53.0); HDW 2.88; HGB 11.7 gm/dL (13.0-17.5); Hypochromasia Moderate; Luc # (Auto) 0.18; Luc % (Auto) 4; Lymphocytes # (A) 1.8 k/uL (1.0-4.8); Lymphocytes % (A) 39 %; MCH 25.9 pg (25.0-35.0); MCHC 31.1 g/dL (31.0-37.0); MCV 83.3 fL (80.0-100.0); Mean Platelet Volume 7.1; Monocytes # (A) 0.4 k/uL (0-1.0); Monocytes % (A) 8 %; Neutrophils # (A) 2.3 k/uL (1.3-7.7); Neutrophils % (A) 49 %; RBC 4.53 m/uL (4.30-5.90); RDW 17.8 % (11.5-15.5); WBC 4.8 k/uL (3.8-10.6); WBC (Perox) 4.86
[2016-07-04] MEDS: INSULIN LISPRO (humaLOG) 300 UNIT/3 ML VIAL SQ SCH ×4 (07:35→21:10)
[2016-07-04 07:40] LABS: INR 1.4 (<1.1); Prothrombin Time 13.6 sec (9.0-12.0)
[2016-07-04 08:02] LABS: Anion Gap 9 mmol/L; Blood Urea Nitrogen 20 mg/dL (9-20); Carbon Dioxide 26 mmol/L (22-30); Chloride 98 mmol/L (98-107); Glucose 131 mg/dL (74-99); Magnesium 1.7 mg/dL (1.6-2.3); Non-African American GFR(MDRD) 56 (>60 ml/min/1.73 sqM); Potassium 3.4 mmol/L (3.5-5.1); Sodium 133 mmol/L (137-145)
[2016-07-04 08:24] VITALS: RESP 16
--- NOTE | 2016-07-04 08:58 | XR ---
EXAMINATION TYPE: XR chest 2V DATE OF EXAM: 07/04/2016 6:38 AM COMPARISON: Prior chest x-ray dated first July 2016 HISTORY: Abnormal chest x-ray, pneumonia TECHNIQUE: Frontal and lateral views of the chest are obtained. FINDINGS: Similar findings to prior exam. Postprocedural changes are stable. No evident pneumothorax or pleural effusion. IMPRESSION: Similar findings, difficult to exclude pneumonia, pulmonary edema, consider congestive h eart failure, underlying pulmonary fibrosis . Prominent lung volumes compatible with underlying COPD. Cardiomegaly.
[2016-07-04 11:41] LABS: Glucose,Whole Blood 134 mg/dL (75-99)
--- NOTE | 2016-07-04 14:48 | P.PN ---
Subjective Patient is doing well today. She is seated up in the chair. No documented fevers over the past 24 hours. Objective - Vital Signs Vital signs: Vital Signs Temp 97.7 F 07/04/16 07:00 Pulse 67 07/04/16 07:00 Resp 16 07/04/16 07:00 BP 122/62 07/04/16 07:00 Pulse Ox 97 07/04/16 07:00 Intake & Output 07/03/16 07/04/16 07/04/16 18:59 06:59 18:59 Intake Total 50 290 Balance 50 290 Weight 99.5 kg 97.5 kg Intake: IV 50 50 Piperacillin-Tazobactam 3 50 50 .375 gm In Dextrose/Water 1 50ml.bag @ 12.5 mls/hr IVPB Q8HR [facility] Rx#: [id number] Oral 240 Other: Voiding Method Toilet # Voids 1 1 - Exam General: The patient is awake and alert, in no distress Eye: there is normal conjunctiva bilaterally. Neck: The neck is supple, there is no JVD. Cardiovascular: Normal S1-S2, no S3-S4, no murmurs. Respiratory: Lungs clear to auscultation bilaterally Gastrointestinal: Abdomen is soft, nontender Musculoskeletal: There is no pedal edema. Neurological:. Speech is normal. Skin: Skin is warm and dry - Labs CBC & Chem 7: 07/04/16 07:20 07/04/16 07:20 Labs: Abnormal Lab Results - Last 24 Hours (Table) 07/03/16 07/03/16 07/04/16 Range/Units 17:03 20:39 07:19 Hgb (13.0-17.5) gm/dL Hct (39.0-53.0) % RDW (11.5-15.5) % Plt Count (150-450) k/uL PT (9.0-12.0) sec Sodium (137-145) mmol/L Potassium (3.5-5.1) mmol/L Glucose (74-99) mg/dL POC Glucose (mg/dL) 125 H 164 H 131 H (75-99) mg/dL Calcium (8.4-10.2) mg/dL 07/04/16 07/04/16 07/04/16 Range/Units 07:20 07:20 07:20 Hgb 11.7 L (13.0-17.5) gm/dL Hct 37.8 L (39.0-53.0) % RDW 17.8 H (11.5-15.5) % Plt Count 133 L (150-450) k/uL PT 13.6 H (9.0-12.0) sec Sodium 133 L (137-145) mmol/L Potassium 3.4 L (3.5-5.1) mmol/L Glucose 131 H (74-99) mg/dL POC Glucose (mg/dL) (75-99) mg/dL Calcium 8.0 L (8.4-10.2) mg/dL 07/04/16 Range/Units 11:37 Hgb (13.0-17.5) gm/dL Hct (39.0-53.0) % RDW (11.5-15.5) % Plt Count (150-450) k/uL PT (9.0-12.0) sec Sodium (137-145) mmol/L Potassium (3.5-5.1) mmol/L Glucose (74-99) mg/dL POC Glucose (mg/dL) 134 H (75-99) mg/dL Calcium (8.4-10.2) mg/dL Microbiology - Last 24 Hours (Table) 07/01/16 23:30 Gram Stain - Final Sputum Sputum Culture - Final 07/01/16 19:11 Blood Culture - Preliminary Blood No Growth after 48 hours Assessment and Plan Plan: 1. Right upper lobe pneumonia 2. 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 Right upper lobe nodularity may represent underlying pneumonia follow-up x- ray showed similar findings. Repeat x-ray recommended in 3-4 weeks. May consider computed tomography scan for further evaluation and rule out malignancy 4. Chronic atrial fibrillation on anticoagulation with Coumadin 5. Type 2 diabetes mellitus: Well-controlled continue sliding scale insulin 6. Underlying congestive heart failure with no evidence of exacerbation Patient is doing clinically better. Urine and blood culture negative to date. He was seen and evaluated by infectious disease, appreciate recommendations. Continue antibiotic regimen for now. Switch antibiotic to Bactrim and discharged home tomorrow. Plan of care discussed with patient and his . Given 5 mg of Coumadin tonight for nontherapeutic INR.
[2016-07-04 17:19] LABS: Glucose,Whole Blood 152 mg/dL (75-99)
[2016-07-04] MEDS ORDERED: LEVOFLOXACIN 750 MG TAB PO SCH (18:00)
[2016-07-04] MEDS ORDERED: WARFARIN 5 MG TAB PO SCH (18:00)
[2016-07-04 20:33] LABS: Glucose,Whole Blood 142 mg/dL (75-99)
--- NOTE | 2016-07-04 20:53 | P.PN ---
Subjective Principal diagnosis: diabetic foot, pneumonia 86-year-old male who has a history of diabetes developed evidence of a diabetic foot infection. 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 The foot has been improving. However presents to Hospital with significant generalized weakness and a fever 102.3. concerns to pneumonia and is been treated with antibiotic therapy. Infectious disease consultation requested regarding the fever and the difficulty with the diabetic foot wound. He's also had pneumonia. His fevers fortunately improving. He is less short of breath. His relates that he is definitely improved from the time of admission. He still is somewhat weak but improving. He does relate to some ongoing wheezing. He or does not have significant sputum production. He does not have hemoptysis. Feeling better today. Objective - Vital Signs Vital signs: Vital Signs Temp 97.7 F 07/04/16 15:00 Pulse 69 07/04/16 15:00 Resp 16 07/04/16 15:00 BP 123/65 07/04/16 15:00 Pulse Ox 96 07/04/16 15:00 Intake & Output 07/04/16 07/04/16 07/05/16 06:59 18:59 06:59 Intake Total 290 360 Balance 290 360 Weight 97.5 kg Intake: IV 50 Piperacillin-Tazobactam 3 50 .375 gm In Dextrose/Water 1 50ml.bag @ 12.5 mls/hr IVPB Q8HR [facility] Rx#: [id number] Oral 240 360 Other: Voiding Method Toilet # Voids 1 1 - Exam pleasant 86-year-old male is in no distress. Appears younger than his stated age. 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 Lungs: symmetrical air entry. Wheezes are scattered through the lung caro No bronchial sounds. no egophony Heart: irregular audible S1-S2, no S3 soft S4. There is no significant murmur click or rub, PMI was nondisplaced. Abdomen: Positive bowel sounds soft and nontender without palpable masses or organomegaly. There was no guarding or rebound. Extremities: The upper extremities have excellent pulses they are symmetric, no significant petechiae or telangiectasia. No splinter hemorrhages were noted. The lower extremities are free from significant edema. The peripheral pulses were 2+ and symmetric. Neuro: Awake alert oriented to person place and time. There are no acute new gross focal sensory motor deficits.patient however has poor vision. - Labs CBC & Chem 7: 07/04/16 07:20 07/04/16 07:20 Labs: Abnormal Lab Results - Last 24 Hours (Table) 07/04/16 07/04/16 07/04/16 Range/Units 07:19 07:20 07:20 Hgb 11.7 L (13.0-17.5) gm/dL Hct 37.8 L (39.0-53.0) % RDW 17.8 H (11.5-15.5) % Plt Count 133 L (150-450) k/uL PT 13.6 H (9.0-12.0) sec Sodium (137-145) mmol/L Potassium (3.5-5.1) mmol/L Glucose (74-99) mg/dL POC Glucose (mg/dL) 131 H (75-99) mg/dL Calcium (8.4-10.2) mg/dL 07/04/16 07/04/16 07/04/16 Range/Units 07:20 11:37 17:18 Hgb (13.0-17.5) gm/dL Hct (39.0-53.0) % RDW (11.5-15.5) % Plt Count (150-450) k/uL PT (9.0-12.0) sec Sodium 133 L (137-145) mmol/L Potassium 3.4 L (3.5-5.1) mmol/L Glucose 131 H (74-99) mg/dL POC Glucose (mg/dL) 134 H 152 H (75-99) mg/dL Calcium 8.0 L (8.4-10.2) mg/dL 07/04/16 Range/Units 20:31 Hgb (13.0-17.5) gm/dL Hct (39.0-53.0) % RDW (11.5-15.5) % Plt Count (150-450) k/uL PT (9.0-12.0) sec Sodium (137-145) mmol/L Potassium (3.5-5.1) mmol/L Glucose (74-99) mg/dL POC Glucose (mg/dL) 142 H (75-99) mg/dL Calcium (8.4-10.2) mg/dL Microbiology - Last 24 Hours (Table) 07/01/16 23:30 Gram Stain - Final Sputum Sputum Culture - Final 07/01/16 19:11 Blood Culture - Preliminary Blood No Growth after 48 hours Laboratory Results WBC 4.8 k/uL (3.8-10.6) 07/04/16 07:20 RBC 4.53 m/uL (4.30-5.90) 07/04/16 07:20 Hgb 11.7 gm/dL (13.0-17.5) L 07/04/16 07:20 Hct 37.8 % (39.0-53.0) L 07/04/16 07:20 MCV 83.3 fL (80.0-100.0) 07/04/16 07:20 MCH 25.9 pg (25.0-35.0) 07/04/16 07:20 MCHC 31.1 g/dL (31.0-37.0) 07/04/16 07:20 RDW 17.8 % (11.5-15.5) H 07/04/16 07:20 Plt Count 133 k/uL (150-450) L 07/04/16 07:20 Neutrophils % 49 % 07/04/16 07:20 Lymphocytes % 39 % 07/04/16 07:20 Monocytes % 8 % 07/04/16 07:20 Eosinophils % 1 % 07/04/16 07:20 Basophils % 0 % 07/04/16 07:20 Neutrophils # 2.3 k/uL (1.3-7.7) 07/04/16 07:20 Lymphocytes # 1.8 k/uL (1.0-4.8) 07/04/16 07:20 Monocytes # 0.4 k/uL (0-1.0) 07/04/16 07:20 Eosinophils # 0.0 k/uL (0-0.7) 07/04/16 07:20 Basophils # 0.0 k/uL (0-0.2) 07/04/16 07:20 Hypochromasia Moderate 07/04/16 07:20 Anisocytosis Slight 07/04/16 07:20 PT 13.6 sec (9.0-12.0) H 07/04/16 07:20 INR 1.4 (<1.1) 07/04/16 07:20 Sodium 133 mmol/L (137-145) L 07/04/16 07:20 Potassium 3.4 mmol/L (3.5-5.1) L 07/04/16 07:20 Chloride 98 mmol/L (98-107) 07/04/16 07:20 Carbon Dioxide 26 mmol/L (22-30) 07/04/16 07:20 Anion Gap 9 mmol/L 07/04/16 07:20 BUN 20 mg/dL (9-20) 07/04/16 07:20 Creatinine 1.23 mg/dL (0.66-1.25) 07/04/16 07:20 Est GFR (MDRD) Af Amer >60 (>60 ml/min/1.73 sqM) 07/04/16 07:20 Est GFR (MDRD) Non-Af 56 (>60 ml/min/1.73 sqM) 07/04/16 07:20 Glucose 131 mg/dL (74-99) H 07/04/16 07:20 POC Glucose (mg/dL) 142 mg/dL (75-99) H 07/04/16 20:31 POC Glu Lens Blank Gauger CARRI PoeEryn eucedae 07/04/16 20:[address] Glu mg/dL 146 mg/dL 07/01/16 19:11 Hemoglobin A1c 6.7 % (4.2-6.1) H 07/01/16 19:11 Plasma Lactic Acid Tawanda 1.3 mmol/L (0.7-2.0) 07/01/16 14:30 Calcium 8.0 mg/dL (8.4-10.2) L 07/04/16 07:20 Magnesium 1.7 mg/dL (1.6-2.3) 07/04/16 07:20 Total Bilirubin 1.5 mg/dL (0.2-1.3) H 07/01/16 14:30 AST 40 U/L (17-59) 07/01/16 14:30 ALT 40 U/L (21-72) 07/01/16 14:30 Alkaline Phosphatase 92 U/L (38-126) 07/01/16 14:30 Total Protein 7.2 g/dL (6.3-8.2) 07/01/16 14:30 Albumin 3.7 g/dL (3.5-5.0) 07/01/16 14:30 Urine Color Light Yellow 07/01/16 14:55 Urine Appearance Clear (Clear) 07/01/16 14:55 Urine pH 7.0 (5.0-8.0) 07/01/16 14:55 Ur Specific [place] 1.005 (1.001-1.035) 07/01/16 14:55 Urine Protein Negative (Negative) 07/01/16 14:55 Urine Glucose (UA) Negative (Negative) 07/01/16 14:55 Urine Ketones Negative (Negative) 07/01/16 14:55 Urine Blood Negative (Negative) 07/01/16 14:55 Urine Nitrate Negative (Negative) 07/01/16 14:55 Urine Bilirubin Negative (Negative) 07/01/16 14:55 Urine Urobilinogen <2.0 mg/dL (<2.0) 07/01/16 14:55 Ur Leukocyte Esterase Small (Negative) H 07/01/16 14:55 Urine RBC 2 /hpf (0-5) 07/01/16 14:55 Urine WBC 11 /hpf (0-5) H 07/01/16 14:55 Urine Mucus Rare /hpf (None) H 07/01/16 14:55 Influenza Type A RNA Not Detected (Not Detectd) 07/01/16 14:25 Influenza Type B (PCR) Not Detected (Not Detectd) 07/01/16 14:25 Microbiology 07/01/16 14:30 Blood Blood Culture - Preliminary No Growth after 72 hours 07/01/16 23:30 Sputum Gram Stain - Final 07/01/16 23:30 Sputum Sputum Culture - Final 07/01/16 19:11 Blood Blood Culture - Preliminary No Growth after 48 hours 07/01/16 14:12 Toe - Right Second Gram Stain - Final 07/01/16 14:12 Toe - Right Second Wound Culture - Final Escherichia coli Methicillin resist S. 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 He was brought into the emergency center where he had evidence of a temperature 2.3. The patient was admitted with concerns to sepsis. He had had recent amputation to the right foot second distal toe. For a diabetic foot infection. Also evidence of abnormal chest x-ray and pneumonia at admission. The patient is definitely feeling better. His fever has resolved. His responded well to current respiratory treatments and antibiotic therapy. Is noted on the exam the foot is healing well. There is some minimal residual edema to the amputation site. His however well approximated without expressible purulence. Suture was removed and it was some bleeding from the suture removal but no other drainage is noted. Wound culture as noted with E. coli and MRSA. Patient is responding well to current antibiotic therapy. Will likely be transitioned to home tomorrow and will need to be placed on oral antibiotic therapy. He is anticoagulated. This will be some challenge for his antibiotic therapy for home. However with close monitoring trimethoprim sulfamethoxazole can be utilized. His creatinine is stable and his potassium is normal. We need to have close monitoring of his PT and INR. This is discussed with the primary care physician. The toe in the abrasion to the left pretibial area should be treated with the opticell silver which will be changed every Thursday, orders for home care given. Status: Acute (2) Pneumonia Status: Acute (3) Weakness Status: Acute
[2016-07-04] MEDS: FOLIC ACID 1 MG TAB PO SCH (21:09)
[2016-07-04] MEDS: TAMSULOSIN 0.4 MG CAP.ER.24H PO SCH (21:09)
[2016-07-04] MEDS: MELATONIN 3 MG TABLET PO SCH (21:10)
[2016-07-05] MEDS: SODIUM CHLORIDE 0.9% 1,000 ML IV SCH ×2 (03:56→11:52)
[2016-07-05] MEDS: LEVOTHYROXINE 25 MCG TAB PO SCH (06:07)
[2016-07-05 07:19] LABS: Glucose,Whole Blood 126 mg/dL (75-99)
[2016-07-05] MEDS: PANTOPRAZOLE 40 MG TABLET PO SCH (08:02)
[2016-07-05] MEDS: CARVEDILOL 3.125 MG TAB PO SCH (08:02)
[2016-07-05] MEDS: LORATADINE 10 MG TAB PO SCH (08:02)
[2016-07-05] MEDS: FUROSEMIDE 40 MG TAB PO SCH (08:02)
[2016-07-05] MEDS: ASPIRIN 81 MG CHEW PO SCH (08:02)
[2016-07-05] MEDS: INSULIN LISPRO (humaLOG) 300 UNIT/3 ML VIAL SQ SCH ×2 (08:02→11:54)
[2016-07-05] MEDS: PIPERACILLIN-TAZOBACTAM 3.375 GM in DEXTROSE/WATER 1 50ML.BAG IVPB SCH (08:02)
[2016-07-05 08:12] LABS: INR 1.4 (<1.1); Prothrombin Time 13.6 sec (9.0-12.0)
[2016-07-05 08:17] LABS: Anisocytosis Slight; Aty Lym Flag Slight; CHCM 31.1; HGB 12.6 gm/dL (13.0-17.5); Hypochromasia Moderate; MCH 25.7 pg (25.0-35.0); MCHC 30.7 g/dL (31.0-37.0); MCV 83.7 fL (80.0-100.0); Mean Platelet Volume 7.2; RDW 17.7 % (11.5-15.5); WBC 4.1 k/uL (3.8-10.6); WBC (Perox) 4.33
[2016-07-05 08:31] LABS: Anion Gap 11 mmol/L; Blood Urea Nitrogen 20 mg/dL (9-20); Calcium 8.7 mg/dL (8.4-10.2); Carbon Dioxide 24 mmol/L (22-30); Chloride 100 mmol/L (98-107); Glucose 135 mg/dL (74-99); Magnesium 1.8 mg/dL (1.6-2.3); Non-African American GFR(MDRD) >60 (>60 ml/min/1.73 sqM); Potassium 3.7 mmol/L (3.5-5.1); Sodium 135 mmol/L (137-145)
[2016-07-05 08:45] VITALS: BP 120/65; PULSE 72; TEMP 97
[2016-07-05 09:39] LABS: Add Differential Manual Differential
[2016-07-05 09:40] LABS: Nucleated Red Blood Cells 0 /100 WBC (0-0); Total Cells Counted 100
[2016-07-05 09:41] LABS: Manual Review Performed
[2016-07-05 11:48] LABS: Glucose,Whole Blood 169 mg/dL (75-99)
--- NOTE | 2016-07-05 13:37 | P.DS ---
Providers Date of admission: 07/01/16 17:34 Expected date of discharge: 07/05/16 Attending physician: Ever Baca Consults: 07/03/16 13:06 Consult Physician Urgent Consulting Provider: Compa Cee Consult Reason/Comments: high fevers Do you want consulting provider notified?: Yes Primary care physician: Maty Eddy Hospital Course: 1. Right upper lobe pneumonia 2. 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 Right upper lobe nodularity may represent underlying pneumonia follow-up x- ray showed similar findings. Repeat x-ray recommended in 3-4 weeks. May consider computed tomography scan for further evaluation and rule out malignancy 4. Chronic atrial fibrillation on anticoagulation with Coumadin 5. Type 2 diabetes mellitus: Well-controlled continue sliding scale insulin 6. Underlying congestive heart failure with no evidence of exacerbation This is a 86-year-old gentleman with past medical history noted above who presented to the hospital with worsening productive cough and fever. Patient was admitted and treated for right upper lobe pneumonia. He was seen and evaluated by infectious disease. He will be discharged home on oral Bactrim as per infectious disease recommendations. Continue to monitor INR closely to 3 times a week while on antibiotic. Follow-up with primary care physician to 3 days. Plan - Discharge Summary New Discharge Prescriptions: Sulfamethox-Tmp 800-160Mg [Bactrim DS 800-160 mg] 1 tab PO Q12HR #14 tab Discharge Medication List Aspirin 81 mg PO DAILY 02/01/14 [History] Folic Acid 1 mg PO HS 02/01/14 [History] Lansoprazole [Prevacid] 30 mg PO DAILY 02/01/14 [History] Tamsulosin HCl 0.4 mg PO HS 02/01/14 [History] Cetirizine HCl [Zyrtec] 10 mg PO DAILY 12/18/15 [History] Methotrexate Sodium (Pf) [Methotrexate 25 mg/ml Vial] 25 mg SQ FR 12/19/15 [ History] metFORMIN HCL [Glucophage] 500 mg PO BID #60 tab 02/11/16 [Rx] Carvedilol [Coreg] 3.125 mg PO BID 07/01/16 [History] Furosemide [Lasix] 40 mg PO DAILY 07/01/16 [History] Levothyroxine Sodium [Synthroid] 25 mcg PO DAILY 07/01/16 [History] Warfarin Sodium [Coumadin] 2.5 mg PO DAILY 07/01/16 [History] Sulfamethox-Tmp 800-160Mg [Bactrim DS 800-160 mg] 1 tab PO Q12HR #14 tab [Rx] Follow up Appointment(s)/Referral(s): Maty Eddy MD [Primary Care Provider] - 1-2 days Jaron Jaffe DO [Doctor of Osteopathic Medicine] - 07/16/16 8:00 am (in wound healing center) Activity/Diet/Wound Care/Special Instructions: emeterioe [facility] [phone] Discharge Disposition: HOME SELF-CARE
--- NOTE | 2016-07-08 18:50 | CDI ---
In responding to this query, please exercise your independent professional judgment. The [facility] Coding Staff and Clinical Documentation Specialists appreciate your assistance in clarifying documentation, maintaining compliance with coding guidelines, accurately documenting patients condition and capturing severity of illness. The fact that a question is asked does not imply that any particular answer is desired or expected. Communication forms are a method of clarifying documentation and are not made part of the Legal Health Record. Thank you in advance for your clarification. Last Revision, March 2015 Date: 07/08/2016 6:40:00 PM From: Kaylee Ward Phone: Admit Date: 07/01/2016 5:34:00 PM Patient Name: Renato Blackman Visit Number: [id number] Discharge Date: Dr. Ever Baca Patient presented with worsening cough and fevers. He was started on IV antibiotics and chest x-ray showed evidence of possible pneumonia. Per documentation in progress note, there was concern for sepsis upon admission. This diagnosis was not carried throughout the record or to the discharge summary. In your professional opinion, can you please clarify ____? Sepsis ruled out Sepsis ruled in Other Unable to determine Please document in your progress notes and discharge summary in order to capture severity of illness and risk of mortality. Include clinical findings that support your diagnosis. FYI: Press F11 to launch patient chart. Place X here if this finding has no clinical significance, is not applicable or if you are not able to provide any additional documentation. LAUREN
== END 2016-07-05 15:12 | disposition home health service (06) | DRG 871 ==
LOC: EC 13:59 → 5MS5E 17:34
PROVIDERS: ADMIT Internal Medicine; ATTEND Internal Medicine
DX: A41.9 Sepsis, unspecified organism (principal); J18.9 Pneumonia, unspecified organism; I11.0 Hypertensive heart disease with heart failure; E11.628 Type 2 diabetes mellitus with other skin complications; F03.90 Unspecified dementia, unspecified severity, without behavioral disturbance, psychotic disturbance, mood disturbance, and anxiety; I50.9 Heart failure, unspecified; I48.2 Chronic atrial fibrillation; M06.9 Rheumatoid arthritis, unspecified; E78.5 Hyperlipidemia, unspecified; Z79.01 Long term (current) use of anticoagulants; Z79.4 Long term (current) use of insulin; Z79.82 Long term (current) use of aspirin; Z87.891 Personal history of nicotine dependence; Z89.429 Acquired absence of other toe(s), unspecified side; Z95.1 Presence of aortocoronary bypass graft; Z79.899 Other long term (current) drug therapy
CPT/HCPCS: 36415; 71020; 80048; 80053; 81001; 83036; 83605; 83735; 85025; 85027; 85610; 87040; 87070; 87077; 87086; 87186; 87205; 87502; 90471; 90715; 99291

== ENCOUNTER → 2016-07-23 | Outpatient (CLI) | payer MEDICARE | END | disposition home or self-care (01) | LOC: LABWHC1 10:30 | PROVIDERS: ATTEND Thoracic Surgery (Cardiothoracic Vascular Surgery) | DX: E63.8 Other specified nutritional deficiencies (principal) | CPT/HCPCS: 36415; 84134 ==

== ENCOUNTER → 2016-09-05 | Outpatient (CLI) | payer MEDICARE ==
[2016-09-05 15:07] LABS: Anisocytosis Slight; Basophils % (A) 0 %; CH 26.5; CHCM 31.4; Eosinophils # (A) 0.1 k/uL (0-0.7); Eosinophils % (A) 1 %; HCT 45.1 % (39.0-53.0); HDW 2.79; HGB 14.2 gm/dL (13.0-17.5); Hypochromasia Slight; Luc # (Auto) 0.15; Luc % (Auto) 2; Lymphocytes # (A) 1.6 k/uL (1.0-4.8); Lymphocytes % (A) 21 %; MCH 26.7 pg (25.0-35.0); MCHC 31.5 g/dL (31.0-37.0); MCV 84.7 fL (80.0-100.0); Mean Platelet Volume 7.1; Monocytes # (A) 0.5 k/uL (0-1.0); Monocytes % (A) 6 %; Neutrophils # (A) 5.5 k/uL (1.3-7.7); Neutrophils % (A) 70 %; RBC 5.33 m/uL (4.30-5.90); RDW 17.1 % (11.5-15.5); WBC 7.9 k/uL (3.8-10.6); WBC (Perox) 8.02
[2016-09-05 15:23] LABS: Anion Gap 14 mmol/L; Blood Urea Nitrogen 18 mg/dL (9-20); Calcium 9.1 mg/dL (8.4-10.2); Carbon Dioxide 25 mmol/L (22-30); Chloride 97 mmol/L (98-107); Glucose 153 mg/dL (74-99); Non-African American GFR(MDRD) >60 (>60 ml/min/1.73 sqM); Potassium 3.9 mmol/L (3.5-5.1); Sodium 136 mmol/L (137-145)
== END | disposition home or self-care (01) ==
LOC: LABPAT 14:36
PROVIDERS: ATTEND Urology
DX: Z01.810 Encounter for preprocedural cardiovascular examination (principal); R35.0 Frequency of micturition; N40.1 Benign prostatic hyperplasia with lower urinary tract symptoms; E11.9 Type 2 diabetes mellitus without complications; I48.91 Unspecified atrial fibrillation
CPT/HCPCS: 80048; 85025; 87086

== ENCOUNTER 2016-09-12 11:26 | Day surgery (SDC) | payer MEDICARE ==
[2016-09-11 11:40] VITALS: BMI 35.8
[~2016-09-12 11:26] MED LIST changes: -FAMOTIDINE 20 MG/2 ML VIAL IV PRN; -LIDOCAINE 1% 20 ML VIAL (10MG/ML) FOR IV START INTRADERMA PRN; +ONDANSETRON 4 MG/2 ML VIAL IVP ONE; -ONDANSETRON 4 MG/2 ML VIAL IVP PRN
[2016-09-12] MEDS: LACTATED RINGERS 1,000 ML IV SCH (12:15)
[2016-09-12] MEDS ORDERED: LIDOCAINE 1% 20 ML VIAL (10MG/ML) FOR IV START INTRADERMA ONE (12:15)
[2016-09-12 12:20] LABS: Glucose,Whole Blood 116 mg/dL (75-99)
[2016-09-12 12:23] LABS: INR 1.2 (<1.1); Prothrombin Time 12.3 sec (9.0-12.0)
[2016-09-12] MEDS ORDERED: MIDAZOLAM 2 MG/2 ML VIAL ONE (14:07)
[2016-09-12] MEDS ORDERED: PROPOFOL 10 MG/ML 20 ML VIAL IV ONE (14:07)
[2016-09-12] MEDS ORDERED: LACTATED RINGERS 1,000 ML IV ONE ×3 (15:55)
[2016-09-12] MEDS ORDERED: SODIUM CHLORIDE 0.9% 1,000 ML IV ONE ×2 (16:48)
--- NOTE | 2016-09-12 16:54 | P.OP ---
Date of Procedure: 09/12/16 Preoperative Diagnosis: BPH with Obstruction Postoperative Diagnosis: Same Procedure(s) Performed: Cystoscopy, Bipolar Transurethral Resection of Prostate (TURP) Anesthesia: spinal Surgeon: Srinath Winslow Estimated Blood Loss (ml): 75 IV fluids (ml): 900 Pathology: other (Prostate tissue fragments) Condition: stable Disposition: PACU Indications for Procedure: He has a known chronic E. coli UTI. This was localized to be arising from the left kidney. Interestingly, the organism was initially sensitive to Bactrim, then became resistant, and subsequently was again sensitive to Bactrim. He was thought to have a small left renal calculus, which may be infected, but ureteronephroscopy was performed and a calculus could not be identified. A CT scan in 2014 showed no calculi. The post-void residual was increased, so he discontinued Detrol LA and continues to take Flomax. Bladder emptying remains incomplete but is improved. Cystoscopy in the past showed evidence of trilobar BPH, and he was advised to consider a TURP (Bipolar TURP vs. plasma button electrode vs. laser prostatectomy). He was recently treated with a 30 day course of Bactrim DS. He has elected to proceed with a TURP. 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 Description of Procedure: The patient was taken in the operating room and placed in the dorsolithotomy position after being given a spinal anesthetic, The external genitalia was prepped and draped sterilely. The 25-Burmese ACMI resectoscope sheath was introduced into the bladder. The bladder was inspected. Both ureteral orifices were of normal anatomic location and configuration, and clear urine effluxed from both. No tumors or foreign bodies were seen. Examination of the prostate revealed complete obstruction with a trilobar configuration. Using the bipolar cutting loop, the median lobe was resected, down to the vesicle neck fibers. Next, the lateral lobes were resected down to the surgical capsule. The floor of the prostate was then resected, proximal to the verumontanum. Lastly, any remaining anterior tissue was resected. The prostatic fossa was then carefully examined. The remaining apical tissue was then carefully resected. The resection was carried down to the surgical capsule in all 4 quadrants. The prostatic fossa was then carefully examined, and any areas of bleeding were controlled with electrocautery. Excellent hemostasis was attained. The resectoscope was withdrawn into the bulbous urethra. The external urinary sphincter remained intact. The prostatic fossa was open. The Simalaya evacuator was used to remove all prostate chips from the bladder. These were saved and sent for pathologic examination. The resectoscope was removed, and a 20 Burmese, 3-Way Dang catheter was placed. The return was clear. Continuous bladder irrigation was started using 0.9 normal saline. The patient tolerated the procedure well was taken to the recovery room in stable condition.
[2016-09-12] MEDS ORDERED: BELLADONNA-OPIUM 16.2-60 MG 1 EACH SUPP RECTAL PRN (16:55)
[2016-09-12] MEDS ORDERED: MAG HYDROX/AL HYDROX/SIMETH 30 ML CUP PO PRN (16:55)
[2016-09-12 17:04] LABS: Glucose,Whole Blood 124 mg/dL (75-99)
[2016-09-12] MEDS: CARVEDILOL 3.125 MG TAB PO SCH (20:02)
[2016-09-12 20:10] LABS: Glucose,Whole Blood 156 mg/dL (75-99)
[2016-09-12] MEDS ORDERED: TAMSULOSIN 0.4 MG CAP.ER.24H PO SCH (21:00)
[2016-09-12] MEDS ORDERED: FOLIC ACID 1 MG TAB PO SCH (21:00)
[2016-09-12] MEDS: DOCUSATE 100 MG CAP PO SCH (21:20)
[2016-09-12] MEDS: metFORMIN 500 MG TAB PO SCH (21:20)
[2016-09-12] MEDS: DEXTROSE 5%-0.45% NACL 1,000 ML IV SCH (23:38)
[2016-09-13] MEDS: ACETAMINOPHEN TAB 325 MG TAB PO PRN ×2 (02:04→14:21)
[2016-09-13] MEDS: LACTATED RINGERS 1,000 ML IV SCH (03:39)
[2016-09-13] MEDS: DEXTROSE 5%-0.45% NACL 1,000 ML IV SCH (05:50)
[2016-09-13] MEDS ORDERED: LEVOTHYROXINE 25 MCG TAB PO SCH (06:30)
[2016-09-13] MEDS ORDERED: PANTOPRAZOLE 40 MG TABLET PO SCH (07:30)
[2016-09-13 07:51] LABS: Glucose,Whole Blood 147 mg/dL (75-99)
[2016-09-13 08:40] VITALS: BP 120/73; PULSE 81; RESP 18; TEMP 98.5
[2016-09-13] MEDS ORDERED: FUROSEMIDE 20 MG TAB PO SCH (09:00)
[2016-09-13] MEDS: DOCUSATE 100 MG CAP PO SCH (09:25)
[2016-09-13] MEDS: CARVEDILOL 3.125 MG TAB PO SCH (09:25)
--- NOTE | 2016-09-13 11:23 | P.DS ---
Providers Expected date of discharge: 09/13/16 Attending physician: Srinath Winslow Primary care physician: Maty [facility] Course: On the day of admission, the patient underwent an uncomplicated bipolar TURP. Intraoperatively, he was found to have trilobar BPH with a large median lobe. The postoperative course was unremarkable. He remained afebrile with stable vital signs. On the first postoperative day, the urine was clear. His only complaint at that time was an urge to void. Procedures: Cystoscopy, Bipolar TURP on 09/12/2016. Patient Condition at Discharge: Good Plan - Discharge Summary Discharge Medication List Aspirin 81 mg PO DAILY 02/01/14 [History] Folic Acid 1 mg PO HS 02/01/14 [History] Lansoprazole [Prevacid] 30 mg PO DAILY 02/01/14 [History] Tamsulosin HCl 0.4 mg PO HS 02/01/14 [History] Methotrexate Sodium (Pf) [Methotrexate 25 mg/ml Vial] 25 mg SQ FR 12/19/15 [ History] metFORMIN HCL [Glucophage] 500 mg PO BID #60 tab 02/11/16 [Rx] Carvedilol [Coreg] 3.125 mg PO BID 07/01/16 [History] Furosemide [Lasix] 60 mg PO DAILY 07/01/16 [History] Levothyroxine Sodium [Synthroid] 25 mcg PO DAILY 07/01/16 [History] Warfarin Sodium [Coumadin] 2.5 mg PO SUMOWEFRSA 07/01/16 [History] Ergocalciferol [Vitamin D2] 50,000 unit PO WE 09/11/16 [History] Warfarin Sodium [Warfarin Sodium] 5 mg PO TUT 09/11/16 [History] Follow up Appointment(s)/Referral(s): Eunice Salomon, PAC [PHYSICIAN LOT TECHNICIAN] - 09/16/16 Activity/Diet/Wound Care/Special Instructions: Discharge home with Dang catheter. Encourage fluids. Patient should take stool softener. No lifting, driving, or strenuous activity. He should continue preoperative medications, including tamsulosin, but Coumadin shall be held until further notice. Discharge Disposition: HOME SELF-CARE
[2016-09-13 11:57] LABS: Glucose,Whole Blood 200 mg/dL (75-99)
[2016-09-13] MEDS: metFORMIN 500 MG TAB PO SCH (12:49)
[2016-09-17] MEDS ORDERED: ERGOCALCIFEROL 50,000 UNIT CAP PO SCH (09:00)
== END 2016-09-13 15:03 | disposition home or self-care (01) ==
LOC: OR 11:26 → 5MS5E 16:34 → OR 09-13 15:03
PROVIDERS: ATTEND Urology
DX: N40.1 Benign prostatic hyperplasia with lower urinary tract symptoms (principal); N39.0 Urinary tract infection, site not specified; B96.20 Unspecified Escherichia coli [E. coli] as the cause of diseases classified elsewhere; I48.91 Unspecified atrial fibrillation; E78.00 Pure hypercholesterolemia, unspecified; Z79.01 Long term (current) use of anticoagulants; Z95.1 Presence of aortocoronary bypass graft; I11.0 Hypertensive heart disease with heart failure; Z87.891 Personal history of nicotine dependence; E07.9 Disorder of thyroid, unspecified; M06.9 Rheumatoid arthritis, unspecified; E11.9 Type 2 diabetes mellitus without complications; Z79.84 Long term (current) use of oral hypoglycemic drugs; Z79.899 Other long term (current) drug therapy; Z79.82 Long term (current) use of aspirin
CPT/HCPCS: 55899; 88305; 85610; J2250; J0690; J2405; J2704

== ENCOUNTER 2016-09-28 11:33 | Inpatient (IN) | payer MEDICARE ==
[2016-09-28] MEDS ORDERED: RX INFO: IV CONTRAST WAS GIVEN 1 EACH MISC MISCELLANE PRN (11:37)
[2016-09-28] MEDS ORDERED: SODIUM CHLORIDE 0.9% 500 ML IV STA (11:37)
--- NOTE | 2016-09-28 11:44 | ED ---
General Adult HPI - General Stated complaint: Stroke Time Seen by Provider: 09/28/16 11:33 Source: RN notes reviewed - History of Present Illness Initial comments: This is an 86-year-old male who presents emergency department after having last been seen at 9 PM last night. states this morning he wasn't getting out of bed so finally she try to get him up and realized his whole left side was completely paralyzed. EMS stated his left leg was moving a little bit. Patient is unable to follow up a lot of simple commands was difficult to determine what else may not be functioning. Patient denied having a headache denied any chest pain or abdominal pain. There is no history of any fever or chills is no history of difficulty breathing. is not at the bedside so most of the history is per EMS. - Related Data Home Medications Medication Instructions Recorded Confirmed Aspirin 81 mg PO DAILY 02/01/14 09/28/16 Folic Acid 1 mg PO HS 02/01/14 09/28/16 Lansoprazole [Prevacid] 30 mg PO DAILY 02/01/14 09/28/16 Tamsulosin HCl 0.4 mg PO HS 02/01/14 09/28/16 Methotrexate Sodium (Pf) 25 mg SQ FR 12/19/15 09/28/16 [Methotrexate 25 mg/ml Vial] Carvedilol [Coreg] 3.125 mg PO BID 07/01/16 09/28/16 Furosemide [Lasix] 60 mg PO DAILY 07/01/16 09/28/16 Levothyroxine Sodium [Synthroid] 25 mcg PO DAILY 07/01/16 09/28/16 Warfarin Sodium [Coumadin] 2.5 mg PO TUTH 07/01/16 09/28/16 Ergocalciferol [Vitamin D2] 50,000 unit PO WE 09/11/16 09/28/16 Warfarin Sodium [Warfarin Sodium] 5 mg PO SUMOWEFRSA 09/11/16 09/28/16 Cetirizine HCl [Zyrtec] 10 mg PO DAILY 09/28/16 09/28/16 Simvastatin 20 mg PO DAILY 09/28/16 09/28/16 Previous Rx's Medication Instructions Recorded metFORMIN HCL [Glucophage] 500 mg PO BID #60 tab 02/11/16 Allergies Allergy/AdvReac Type Severity Reaction Status Date / Time No Known Allergies Allergy Verified 09/28/16 12:28 Review of Systems ROS Statement: Those systems with pertinent positive or pertinent negative responses have been documented in the HPI. ROS Other: All systems not noted in ROS Statement are negative. Past Medical History Past Medical History: Atrial Fibrillation, Heart Failure, Diabetes Mellitus, Hyperlipidemia, Hypertension, Prostate Disorder, Rheumatoid Arthritis (RA), Skin Disorder Additional Past Medical History / Comment(s): NEUROPATHY, UTI, SKIN CA, OSTEOMYELITIS HAD RT 2ND TOE AMPUTATED ON 06-20-16 AND PER HAS AN APPT AT [facility] TO SEE IF SUTURES CAN BE TAKEN OUT. ,WEARS DEPENDS(ON DIURETICS) History of Any Multi-Drug Resistant Organisms: MRSA Date of last positivie culture/infection: 07/01/16 MDRO Source:: Toe (Right Second) Past Surgical History: AICD, Coronary Bypass/CABG, Hernia Repair, Pacemaker Additional Past Surgical History / Comment(s): CABG in 1994, RT 2ND TOE AMPUTATED Past Anesthesia/Blood Transfusion Reactions: No Reported Reaction Type of Cardiac Device: AICD Device Placement Date:: 2013 Past Psychological History: No Psychological Hx Reported Additional Psychological History / Comment(s): DEMENTIA. 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 No experience. No tobacco or alchol use Smoking Status: Former smoker Past Alcohol Use History: Occasional Additional Past Alcohol Use History / Comment(s): STARTED SMOKING 1949, QUIT 1999, SMOKED 1 PPD Past Drug Use History: None Reported - Past Family History Mother Family Medical History: Cancer Additional Family Medical History / Comment(s): FROM BREAST CANCER AGE 50 Father History Unknown: Yes Additional Family Medical History / Comment(s): PT DID'NT KNOW HIS DAD-LEFT WHEN PT WAS AGE 3 General Exam - General Exam Comments Initial Comments: GENERAL: Patient is well-developed and well-nourished. Patient is nontoxic and well- hydrated and is in no acute distress. ENT: Neck is soft and supple. No significant lymphadenopathy is noted. Oropharynx is clear. Moist mucous membranes. Neck has full range of motion without eliciting any pain. EYES: The sclera were anicteric and conjunctiva were pink and moist. Extraocular movements were intact and pupils were equal round and reactive to light. Eyelids were unremarkable. PULMONARY: Unlabored respirations. Good breath sounds bilaterally. No audible rales rhonchi or wheezing was noted. CARDIOVASCULAR: There is a regular rate and rhythm without any murmurs gallops or rubs. ABDOMEN: Soft and nontender with normal bowel sounds. No palpable organomegaly was noted. There is no palpable pulsatile mass. SKIN: Skin is clear with no lesions or rashes and otherwise unremarkable. NEUROLOGIC: Patient is alert and oriented 1. Cranial nerves II through XII are grossly intact. Patient does not appear to be able to move the left arm at all he does have some flexion at the knee of the left leg but very little when compared to the right. Patient's speech is slow volume and difficult to understand I don't know if this is his baseline but there is no one here to confirm his baseline. He does not appear to have a facial droop and when he does try speech is facial muscles appear to be symmetrical MUSCULOSKELETAL: Normal extremities with adequate strength and full range of motion. No lower extremity swelling or edema. No calf tenderness. LYMPHATICS: No significant lymphadenopathy is noted PSYCHIATRIC: Unable to assess since patient does not answer all my questions Course Vital Signs 09/28/16 11:55 Temperature 98.3 F Pulse Rate 65 Respiratory 18 Rate Blood Pressure 148/79 O2 Sat by Pulse 99 Oximetry Medical Decision Making - Medical Decision Making EKG shows atrial fibrillation at 67 bpm QRS is 114 QT interval 394 QTC is 416. Patient's EKG shows no ST segment elevation. I spoke with the neuro interventional list and they did not indicate anything further to be done - Lab Data Result diagrams: 09/28/16 11:55 09/28/16 11:55 Lab Results 09/28/16 09/28/16 09/28/16 Range/Units 11:55 11:55 11:55 WBC 7.5 (3.8-10.6) k/uL RBC 4.90 (4.30-5.90) m/uL Hgb 13.1 (13.0-17.5) gm/dL Hct 41.1 (39.0-53.0) % MCV 83.9 (80.0-100.0) fL MCH 26.8 (25.0-35.0) pg MCHC 31.9 (31.0-37.0) g/dL RDW 17.4 H (11.5-15.5) % Plt Count 277 (150-450) k/uL Neutrophils % 71 % Lymphocytes % 24 % Monocytes % 2 % Eosinophils % 2 % Basophils % 1 % Neutrophils # 5.3 (1.3-7.7) k/uL Lymphocytes # 1.8 (1.0-4.8) k/uL Monocytes # 0.1 (0-1.0) k/uL Eosinophils # 0.1 (0-0.7) k/uL Basophils # 0.1 (0-0.2) k/uL Anisocytosis Slight PT (9.0-12.0) sec INR (<1.1) APTT (22.0-30.0) sec Sodium 133 L (137-145) mmol/L Potassium 4.0 (3.5-5.1) mmol/L Chloride 99 (98-107) mmol/L Carbon Dioxide 25 (22-30) mmol/L Anion Gap 9 mmol/L BUN 13 (9-20) mg/dL Creatinine 0.86 (0.66-1.25) mg/dL Est GFR (MDRD) Af Amer >60 (>60 ml/min/1.73 sqM) Est GFR (MDRD) Non-Af >60 (>60 ml/min/1.73 sqM) Glucose 144 H (74-99) mg/dL Calcium 8.8 (8.4-10.2) mg/dL Total Bilirubin 1.3 (0.2-1.3) mg/dL AST 32 (17-59) U/L ALT 29 (21-72) U/L Alkaline Phosphatase 91 (38-126) U/L Total Creatine Kinase 39 L (55-170) U/L CK-MB (CK-2) 1.0 (0.0-2.4) ng/mL CK-MB (CK-2) Rel Index 2.6 Troponin I 0.013 (0.000-0.034) ng/mL Total Protein 7.1 (6.3-8.2) g/dL Albumin 3.5 (3.5-5.0) g/dL Urine Color Urine Appearance (Clear) Urine pH (5.0-8.0) Ur Specific Guin (1.001-1.035) Urine Protein (Negative) Urine Glucose (UA) (Negative) Urine Ketones (Negative) Urine Blood (Negative) Urine Nitrite (Negative) Urine Bilirubin (Negative) Urine Urobilinogen (<2.0) mg/dL Ur Leukocyte Esterase (Negative) Urine RBC (0-5) /hpf Urine WBC (0-5) /hpf Urine WBC Clumps (None) /hpf Urine Bacteria (None) /hpf 09/28/16 09/28/16 Range/Units 11:55 11:55 WBC (3.8-10.6) k/uL RBC (4.30-5.90) m/uL Hgb (13.0-17.5) gm/dL Hct (39.0-53.0) % MCV (80.0-100.0) fL MCH (25.0-35.0) pg MCHC (31.0-37.0) g/dL RDW (11.5-15.5) % Plt Count (150-450) k/uL Neutrophils % % Lymphocytes % % Monocytes % % Eosinophils % % Basophils % % Neutrophils # (1.3-7.7) k/uL Lymphocytes # (1.0-4.8) k/uL Monocytes # (0-1.0) k/uL Eosinophils # (0-0.7) k/uL Basophils # (0-0.2) k/uL Anisocytosis PT 17.3 H (9.0-12.0) sec INR 1.8 (<1.1) APTT 25.1 (22.0-30.0) sec Sodium (137-145) mmol/L Potassium (3.5-5.1) mmol/L Chloride (98-107) mmol/L Carbon Dioxide (22-30) mmol/L Anion Gap mmol/L BUN (9-20) mg/dL Creatinine (0.66-1.25) mg/dL Est GFR (MDRD) Af Amer (>60 ml/min/1.73 sqM) Est GFR (MDRD) Non-Af (>60 ml/min/1.73 sqM) Glucose (74-99) mg/dL Calcium (8.4-10.2) mg/dL Total Bilirubin (0.2-1.3) mg/dL AST (17-59) U/L ALT (21-72) U/L Alkaline Phosphatase (38-126) U/L Total Creatine Kinase (55-170) U/L CK-MB (CK-2) (0.0-2.4) ng/mL CK-MB (CK-2) Rel Index Troponin I (0.000-0.034) ng/mL Total Protein (6.3-8.2) g/dL Albumin (3.5-5.0) g/dL Urine Color Yellow Urine Appearance Cloudy (Clear) Urine pH 7.5 (5.0-8.0) Ur Specific Guin 1.013 (1.001-1.035) Urine Protein 1+ H (Negative) Urine Glucose (UA) Negative (Negative) Urine Ketones Negative (Negative) Urine Blood Moderate H (Negative) Urine Nitrite Negative (Negative) Urine Bilirubin Negative (Negative) Urine Urobilinogen 4.0 (<2.0) mg/dL Ur Leukocyte Esterase Large H (Negative) Urine RBC 54 H (0-5) /hpf Urine WBC >182 H (0-5) /hpf Urine WBC Clumps Moderate H (None) /hpf Urine Bacteria Rare H (None) /hpf Disposition Clinical Impression: UTI (urinary tract infection), Cerebrovascular accident Disposition: ADMITTED IP TO THIS HOSP Referrals: Maty Eddy MD [Primary Care Provider] - 1-2 days Time of Disposition: 13:07
[2016-09-28 12:15] LABS: Anisocytosis Slight; Basophils # (A) 0.1 k/uL (0-0.2); Basophils % (A) 1 %; CH 27.1; CHCM 32.4; Eosinophils # (A) 0.1 k/uL (0-0.7); Eosinophils % (A) 2 %; HCT 41.1 % (39.0-53.0); HGB 13.1 gm/dL (13.0-17.5); Luc # (Auto) 0.07; Luc % (Auto) 1; Lymphocytes # (A) 1.8 k/uL (1.0-4.8); Lymphocytes % (A) 24 %; MCH 26.8 pg (25.0-35.0); MCHC 31.9 g/dL (31.0-37.0); MCV 83.9 fL (80.0-100.0); Mean Platelet Volume 6.7; Monocytes # (A) 0.1 k/uL (0-1.0); Monocytes % (A) 2 %; Neutrophils # (A) 5.3 k/uL (1.3-7.7); Neutrophils % (A) 71 %; RDW 17.4 % (11.5-15.5); WBC 7.5 k/uL (3.8-10.6); WBC (Perox) 7.08
[2016-09-28 12:17] LABS: Appearance,Urine Cloudy (Clear); Bacteria,Urine Rare /hpf; Bilirubin,Urine Negative (Negative); Glucose,Urine (UA) Negative (Negative); Ketones,Urine Negative (Negative); Leukocyte Esterase,Urine Large (Negative); Nitrite,Urine Negative (Negative); PH, Urine 7.5 (5.0-8.0); Particle Count 7385; Protein,Urine 1+ (Negative); RBC,Urine 54 /hpf (0-5); Specific Gravity,Urine 1.013 (1.001-1.035); UA Billing (MACRO vs. MICRO) MICRO; WBC,Urine >182 /hpf (0-5)
[2016-09-28 12:24] LABS: ALT 29 U/L (21-72); AST 32 U/L (17-59); Alkaline Phosphatase 91 U/L (38-126); Anion Gap 9 mmol/L; Blood Urea Nitrogen 13 mg/dL (9-20); Calcium 8.8 mg/dL (8.4-10.2); Carbon Dioxide 25 mmol/L (22-30); Chloride 99 mmol/L (98-107); Glucose 144 mg/dL (74-99); Non-African American GFR(MDRD) >60 (>60 ml/min/1.73 sqM); Sodium 133 mmol/L (137-145); Total Bilirubin 1.3 mg/dL (0.2-1.3); Total Protein 7.1 g/dL (6.3-8.2)
[2016-09-28 12:25] LABS: INR 1.8 (<1.1); Partial Thromboplastin Time 25.1 sec (22.0-30.0); Prothrombin Time 17.3 sec (9.0-12.0)
[2016-09-28] MEDS ORDERED: cefTRIAXone 2,000 MG in SODIUM CHLORIDE 0.9% 100 ML IVPB STA (12:29)
--- NOTE | 2016-09-28 12:31 | CT ---
EXAMINATION TYPE: CT brain wo con DATE OF EXAM: 09/28/2016 COMPARISON: 12/18/2015 HISTORY: Unable to move Lt side CT DLP: 1029.9 mGycm Automated exposure control for dose reduction was used. FINDINGS: There is no acute intracranial hemorrhage, mass effect, or midline shift identified. There is extensive evidence of degenerative change. Area of subacute infarct involving the right temporal lobe and parietal lobe suspected with no midlin e shift. Nonspecific low attenuation within the white matter. Intracranial atherosclerotic occlusive disease. IMPRESSION: 1. Large area of low attenuation in the right middle cerebral artery distribution suggest acute ische robb. Report discussed with ER physician.
--- NOTE | 2016-09-28 12:57 | XR ---
EXAMINATION TYPE: XR chest 2V DATE OF EXAM: 09/28/2016 COMPARISON: 07/04/2016 TECHNIQUE: PA and lateral views submitted. HISTORY: Cough and congestion FINDINGS: Heart is enlarged and there is postoperative change and cardiac device. Diffuse interstitial pattern with bilateral small effusions and basilar infiltrate. Displaced right clavicular fracture. Arthropat hy of the shoulders. IMPRESSION: 1. Correlate for pulmonary interstitial fibrosis with superimposed pneumonitis or venous congestion a nd small effusions. 2. Chronic appearing right clavicular displaced fracture.
[2016-09-28 13:02] LABS: Troponin I 0.013 ng/mL (0.000-0.034)
[2016-09-28] MEDS ORDERED: ASPIRIN 325 MG TAB PO STA (13:14)
[2016-09-28] MEDS ORDERED: ASPIRIN 300 MG SUPP RECTAL STA (13:46)
[2016-09-28 14:52] VITALS: BMI 33.7
--- NOTE | 2016-09-28 16:04 | US ---
EXAMINATION TYPE: US carotid duplex BILAT DATE OF EXAM: 09/28/2016 COMPARISON: 12/18/2015 CLINICAL HISTORY: Stenosis. Stenosis, Stroke, exam done portable EXAM MEASUREMENTS: RIGHT: Peak Systolic Velocity (PSV) cm/sec ----- Right CCA: 39.2 ----- Right ICA: 51.4 ----- Right ECA: 145.7 ICA/CCA ratio: 1.3 RIGHT: End Diastole cm/sec ----- Right CCA: 0.0 ----- Right ICA: 10.4 ----- Right ECA: 15.6 LEFT: Peak Systolic Velocity (PSV) cm/sec ----- Left CCA: 54.8 ----- Left ICA: 95.6 ----- Left ECA: 72.3 ICA/CCA ratio: 1.7 LEFT: End Diastole cm/sec ----- Left CCA: 14.2 ----- Left ICA: 21.9 ----- Left ECA: 8.9 VERTEBRALS (direction of flow): Right Vertebral: Antegrade Left Vertebral: Antegrade Technically difficult and limited evaluation of right carotids due to [facility], limited evaluation of velocities due to patient heavy breathing and snoring Bilateral intimal thickening, plaque bilateral bulb, elevated velocity: right mid ECA, no significant stenosis seen at this time IMPRESSION: There is antegrade flow in the vertebral arteries. The images and measurements suggest 0 -50% stenosis in both internal carotid arteries and closer to 35% based on the images. No adverse c hange compared to old exam. Criteria for Assigning % of Stenosis / Diameter reduction (Estimation based on the indirect measurements of the internal carotid artery velocities (ICA PSV). 1. Normal (no stenosis)=ICA PSV < 125 cm/s: ratio < 2.0: ICA EDV<40 cm/s. 2. Less than 50% stenosis=ICA PSV < 125 cm/s: ratio < 2.0: ICA EDV<40 cm/s. 3. 50 to 69% stenosis=ICA PSV of 125 to 230 cm/s: ration 2.0 ? 4.0: ICA EDV 40-100 cm/s. 4. Greater than 70% stenosis to near occlusion= ICA PSV > 230 cm/s: ratio > 4.0: ICA EDV > 100 cm/s. 5. Near occlusion= ICA PSV velocities may be low or undetectable: variable ratio and ICA EDV. 6. Total occlusion=unable to detect flow.
[2016-09-28 17:05] LABS: Glucose,Whole Blood 153 mg/dL (75-99)
--- NOTE | 2016-09-28 18:08 | P.CNNES ---
History of Present Illness Consult date: 09/28/16 History of Present Illness: The patient is an 86-year-old man who woke up this morning with left-sided weakness. Pearley he was fine yesterday evening. His found him in the morning with left-sided paralysis. EMS was called and he was brought to [place] emergency room. Patient has a history of atrial fibrillation heart disease diabetes hyperlipidemia hypertension. On Coumadin for atrial fibrillation. Pro time is 17.3 with an INR of 1.8 next The patient denies any pain. He seems to be unaware of his left-sided weakness and there is some left-sided neglect. The patient denies any difficulty swallowing. Able to answer simple questions. He denies any past history of stroke. He had a CT of the brain in the emergency room which showed a large area of low attenuation in the right MCA territory suggesting an acute ischemic stroke. He had a carotid ultrasound showed less than 50% stenosis in the both internal carotids Review of Systems ROS unobtainable: due to mental status Past Medical History Past Medical History: Atrial Fibrillation, Heart Failure, Diabetes Mellitus, Hyperlipidemia, Hypertension, Prostate Disorder, Rheumatoid Arthritis (RA), Skin Disorder Additional Past Medical History / Comment(s): NEUROPATHY, UTI, SKIN CA, OSTEOMYELITIS HAD RT 2ND TOE AMPUTATED ON 06-20-16 AND PER HAS AN APPT AT [facility] TO SEE IF SUTURES CAN BE TAKEN OUT. 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 No experience. No tobacco or alchol use Smoking Status: Former smoker Past Alcohol Use History: Occasional Additional Past Alcohol Use History / Comment(s): STARTED SMOKING 1949, QUIT 1999, SMOKED 1 PPD Past Drug Use History: None Reported - Past Family History Mother Family Medical History: Cancer Additional Family Medical History / Comment(s): FROM BREAST CANCER AGE 50 Father History Unknown: Yes Additional Family Medical History / Comment(s): PT DID'NT KNOW HIS DAD-LEFT WHEN PT WAS AGE 3 Medications and Allergies Home Medications Medication Instructions Recorded Confirmed Type Aspirin 81 mg PO DAILY 02/01/14 09/28/16 History Folic Acid 1 mg PO HS 02/01/14 09/28/16 History Lansoprazole [Prevacid] 30 mg PO DAILY 02/01/14 09/28/16 History Tamsulosin HCl 0.4 mg PO HS 02/01/14 09/28/16 History Methotrexate Sodium (Pf) 25 mg SQ FR 12/19/15 09/28/16 History [Methotrexate 25 mg/ml Vial] Carvedilol [Coreg] 3.125 mg PO BID 07/01/16 09/28/16 History Furosemide [Lasix] 60 mg PO DAILY 07/01/16 09/28/16 History Levothyroxine Sodium [Synthroid] 25 mcg PO DAILY 07/01/16 09/28/16 History Warfarin Sodium [Coumadin] 2.5 mg PO TUTH 07/01/16 09/28/16 History Ergocalciferol [Vitamin D2] 50,000 unit PO WE 09/11/16 09/28/16 History Warfarin Sodium [Warfarin Sodium] 5 mg PO SUMOWEFRSA 09/11/16 09/28/16 History Cetirizine HCl [Zyrtec] 10 mg PO DAILY 09/28/16 09/28/16 History Simvastatin 20 mg PO DAILY 09/28/16 09/28/16 History Allergies Allergy/AdvReac Type Severity Reaction Status Date / Time No Known Allergies Allergy Verified 09/28/16 12:28 Physical Examination - Vital Signs Vital Signs: Vital Signs Temp Pulse Pulse Resp BP BP Pulse Ox 09/28/16 16:14 97.7 F 79 16 145/65 99 09/28/16 15:14 97.7 F 79 16 146/69 99 09/28/16 14:30 97.6 F 70 16 132/78 99 09/28/16 14:20 70 16 09/28/16 14:14 97.6 F 70 16 132/78 99 09/28/16 13:28 98.0 F 68 16 189/79 100 09/28/16 13:20 64 189/79 100 09/28/16 13:05 66 197/88 100 09/28/16 12:35 66 168/80 100 09/28/16 12:20 68 152/75 99 09/28/16 12:05 68 148/68 99 09/28/16 11:55 98.3 F 65 18 148/79 99 Intake and Output 09/28/16 09/28/16 09/28/16 06:59 14:59 22:59 Output Total 300 Balance -300 Output: Urine 300 Uretheral (Dang) 300 Other: Voiding Method Indwelling Catheter Indwelling Catheter Weight 100.698 kg Patient Weight 09/29/16 06:59 Weight 100.698 kg - Constitutional General appearance: average body habitus - EENT EENT: PERRL, hearing intact - Respiratory Respiratory: lungs clear - Cardiovascular Cardiovascular: regular rate - Integumentary Integumentary: normal - Neurologic The patient was awake. There was left-sided neglect. He seemed to be unaware of his left-sided weakness. He was oriented to person. There is no a aphasia or dysarthria. He was able to repeat and follow simple commands Cranial nerve examination: other (Pulls were equal and reactive there was no ptosis he had a left facial droop visual field testing was difficult to perform) Speech examination: intact Detailed motor examination: other (Left hemiplegia) - Psychiatric Psychiatric: cooperative Results - Laboratory Findings CBC and BMP: 09/28/16 11:55 09/28/16 11:55 Abnormal Lab Findings: Abnormal Labs 09/28/16 09/28/16 09/28/16 11:55 11:55 11:55 RDW 17.4 H PT Sodium 133 L Glucose 144 H POC Glucose (mg/dL) Total Creatine Kinase 39 L Urine Protein Urine Blood Ur Leukocyte Esterase Urine RBC Urine WBC Urine WBC Clumps Urine Bacteria 09/28/16 09/28/16 09/28/16 11:55 11:55 16:56 RDW PT 17.3 H Sodium Glucose POC Glucose (mg/dL) 153 H Total Creatine Kinase Urine Protein 1+ H Urine Blood Moderate H Ur Leukocyte Esterase Large H Urine RBC 54 H Urine WBC >182 H Urine WBC Clumps Moderate H Urine Bacteria Rare H Assessment and Plan (1) Cerebrovascular accident Status: Acute Code(s): I63.9 - CEREBRAL INFARCTION, UNSPECIFIED (2) Atrial fibrillation Status: Chronic Code(s): I48.91 - UNSPECIFIED ATRIAL FIBRILLATION Plan: The patient is an 86-year-old man who presented to the emergency room with left- sided weakness and paralysis. found him in bed this morning with left- sided weakness and inability to get out of bed. CT of the brain did confirm acute ischemic infarct in the right hemisphere the patient was admitted with stroke as well as UTI recommend management of blood glucose and stabilize infection check EEG as well as echocardiogram. Also we will repeat CT brain in 24 hours speech therapist to assess swallowing
[2016-09-28] MEDS: FAMOTIDINE 20 MG TAB PO SCH (20:16)
[2016-09-28 21:43] LABS: Glucose,Whole Blood 162 mg/dL (75-99)
[2016-09-29 06:15] LABS: Cholesterol 125 mg/dL (<200); HDL Cholesterol 22 mg/dL (40-60); Triglycerides 172 mg/dL (<150)
[2016-09-29] MEDS: INSULIN LISPRO (humaLOG) 300 UNIT/3 ML VIAL SQ SCH ×2 (06:29→12:44)
[2016-09-29 06:46] LABS: Glucose,Whole Blood 150 mg/dL (75-99)
[2016-09-29] MEDS: FAMOTIDINE 20 MG TAB PO SCH (07:49)
[2016-09-29] MEDS ORDERED: CLOPIDOGREL 75 MG TAB PO SCH (09:00)
--- NOTE | 2016-09-29 09:36 | CT ---
EXAMINATION TYPE: CT brain wo con DATE OF EXAM: 09/29/2016 COMPARISON: CT brain 09/28/2016 HISTORY: Stroke CT DLP: 978.2 mGycm Automated exposure control for dose reduction was used. FINDINGS: The right middle cerebral artery distribution of low attenuation is again noted, there is effacement of the overlying sulci, some mass effect as noted on the right lateral ventricle. There is no evident hemorrhage. Cerebral vascular calcifications are present. No hydrocephalus. IMPRESSION: Right middle cerebral artery infarction as noted on previous exam. Some interval increase in local ed bal.
[2016-09-29 09:49] LABS: Hemoglobin A1C 6.4 % (4.2-6.1)
[2016-09-29 12:09] LABS: Glucose,Whole Blood 148 mg/dL (75-99)
[2016-09-29] MEDS ORDERED: cefTRIAXone 2,000 MG in SODIUM CHLORIDE 0.9% 100 ML IVPB SCH (13:00)
[2016-09-29] MEDS ORDERED: Magnesium Replacement Protocol 1 EACH MISC MISCELLANE PRN (13:02)
[2016-09-29] MEDS ORDERED: Potassium Replacement Protocol 1 EACH MISC MISCELLANE PRN (13:02)
[2016-09-29] MEDS ORDERED: ASPIRIN 325 MG TAB PO SCH (13:15)
--- NOTE | 2016-09-29 14:15 | P.HPIM ---
History of Present Illness H&P Date: 09/29/16 Chief Complaint: Unresponsive This is a 86-year-old gentleman with past medical history significant for chronic atrial fibrillation, type 2 diabetes mellitus, congestive heart failure , and mild cognitive impairment who was brought into the hospital by his family after he was found unresponsive and hard to arouse Thursday morning. Patient is currently obtunded and unable to provide medical history. Medical history was obtained by his and son at the bedside. Patient was doing fairly well and went to sleep on Thursday and then Thursday morning when his was trying to arouse him he was very hard to arouse. They decided to bring him to the emergency room. Patient was evaluated in the emergency room and computed tomography scan of the brain showed large area of low attenuation involving the right temporal lobe and right parietal lobe suggesting for an acute or subacute MCA distribution stroke. Patient was admitted to the hospital for further evaluation. He is currently obtunded and not responding to verbal or painful stimuli. He slightly open his eyes to sternal rub. He was also found to have an underlying urinary tract infection and continued to spike fever despite being on IV ceftriaxone. Today, I discussed goals of care with his and son at bedside. They both wanted the patient to be comfortable only. They do not want any further testing or blood work. Patient is currently DNR/DNI. They elected to pursue comfort measures and hospice care. Patient would be made comfortable and consultation to hospice would be requested for the patient to be enrolled in hospice. We will continue IV morphine and IV Ativan as needed. Scopolamine patch ordered. We'll continue to monitor closely. All of their questions answered to their satisfaction. Review of Systems Unable to review other systems given altered mental status Past Medical History Past Medical History: Atrial Fibrillation, Heart Failure, Diabetes Mellitus, Hyperlipidemia, Hypertension, Prostate Disorder, Rheumatoid Arthritis (RA), Skin Disorder Additional Past Medical History / Comment(s): NEUROPATHY, UTI, SKIN CA, OSTEOMYELITIS HAD RT 2ND TOE AMPUTATED ON 06-20-16 AND PER HAS AN APPT AT [facility] TO SEE IF SUTURES CAN BE TAKEN OUT. 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 Retired [employer]. No experience. No tobacco or alchol use Smoking Status: Former smoker Past Alcohol Use History: Occasional Additional Past Alcohol Use History / Comment(s): STARTED SMOKING 1949, QUIT 1999, SMOKED 1 PPD Past Drug Use History: None Reported - Past Family History Mother Family Medical History: Cancer Additional Family Medical History / Comment(s): FROM BREAST CANCER AGE 50 Father History Unknown: Yes Additional Family Medical History / Comment(s): PT DID'NT KNOW HIS DAD-LEFT WHEN PT WAS AGE 3 Medications and Allergies Home Medications Medication Instructions Recorded Confirmed Type Aspirin 81 mg PO DAILY 02/01/14 09/28/16 History Folic Acid 1 mg PO HS 02/01/14 09/28/16 History Lansoprazole [Prevacid] 30 mg PO DAILY 02/01/14 09/28/16 History Tamsulosin HCl 0.4 mg PO HS 02/01/14 09/28/16 History Methotrexate Sodium (Pf) 25 mg SQ FR 12/19/15 09/28/16 History [Methotrexate 25 mg/ml Vial] Carvedilol [Coreg] 3.125 mg PO BID 07/01/16 09/28/16 History Furosemide [Lasix] 60 mg PO DAILY 07/01/16 09/28/16 History Levothyroxine Sodium [Synthroid] 25 mcg PO DAILY 07/01/16 09/28/16 History Warfarin Sodium [Coumadin] 2.5 mg PO TUTH 07/01/16 09/28/16 History Ergocalciferol [Vitamin D2] 50,000 unit PO WE 09/11/16 09/28/16 History Warfarin Sodium [Warfarin Sodium] 5 mg PO SUMOWEFRSA 09/11/16 09/28/16 History Cetirizine HCl [Zyrtec] 10 mg PO DAILY 09/28/16 09/28/16 History Simvastatin 20 mg PO DAILY 09/28/16 09/28/16 History Allergies Allergy/AdvReac Type Severity Reaction Status Date / Time No Known Allergies Allergy Verified 09/28/16 12:28 Physical Exam Vitals: Vital Signs Temp Pulse Resp BP Pulse Ox 09/29/16 11:49 82 16 09/29/16 11:48 101 F H 82 16 135/62 97 09/29/16 10:14 100.2 F H 87 16 135/87 94 L 09/29/16 08:00 100.0 F H 85 16 173/82 96 09/29/16 06:14 99.8 F H 76 18 143/70 98 09/29/16 04:00 100.4 F H 76 18 134/67 94 L 09/29/16 02:14 100.6 F H 84 18 158/79 96 09/29/16 00:00 100.6 F H 86 16 114/78 97 09/28/16 22:14 98.5 F 95 16 141/85 97 09/28/16 20:00 98.4 F 89 16 135/64 95 09/28/16 18:14 97.1 F L 78 16 139/63 98 09/28/16 16:14 97.7 F 79 16 145/65 99 09/28/16 15:14 97.7 F 79 16 146/69 99 09/28/16 14:30 97.6 F 70 16 132/78 99 09/28/16 14:20 70 16 09/28/16 14:14 97.6 F 70 16 132/78 99 Intake and Output 09/28/16 09/29/16 09/29/16 22:59 06:59 14:59 Intake Total 320 Balance 320 Intake: IV 320 0.9% NS @ 20 mL/HR 320 Other: Voiding Method Indwelling Catheter Indwelling Catheter Indwelling Catheter Weight 101.5 kg General: The patient is obtunded and only open his eyes for a few seconds to sternal rub Neck: The neck is supple, there is no JVD. Cardiovascular: Normal S1-S2, no S3-S4, no murmurs. Respiratory: Lungs clear to auscultation bilaterally. Patient is having episodes of apnea Gastrointestinal: Abdomen is soft, nontender Musculoskeletal: There is no pedal edema. Skin: Skin is warm and dry Results CBC & Chem 7: 09/28/16 11:55 09/28/16 11:55 Labs: Abnormal Lab Results - Last 24 Hours (Table) 09/28/16 09/28/16 09/29/16 Range/Units 16:56 20:53 05:38 POC Glucose (mg/dL) 153 H 162 H (75-99) mg/dL Hemoglobin A1c (4.2-6.1) % Triglycerides 172 H (<150) mg/dL HDL Cholesterol 22 L (40-60) mg/dL 09/29/16 09/29/16 09/29/16 Range/Units 05:38 06:14 11:45 POC Glucose (mg/dL) 150 H 148 H (75-99) mg/dL Hemoglobin A1c 6.4 H (4.2-6.1) % Triglycerides (<150) mg/dL HDL Cholesterol (40-60) mg/dL Thrombosis Risk Factor Assmnt - Choose All That Apply Any of the Below Risk Factors Present?: Yes Each Factor Represents 1 point: Swollen legs (current) Other Risk Factors: Yes Each Risk Factor Represents 2 Points: Patient confined to bed Each Risk Factor Represents 3 Points: Age 75 years or older Other congenital or acquired thrombophilia - If yes, enter type in comment: Yes Each Risk Factor Represents 5 Points: Stroke (< 1 month) Thrombosis Risk Factor Assessment Total Risk Factor Score: 11 Thrombosis Risk Factor Assessment Level: High Risk Assessment and Plan Plan: This is a 86-year-old gentleman with past medical history significant for chronic atrial fibrillation, type 2 diabetes mellitus, congestive heart failure , and mild cognitive impairment who was brought into the hospital by his family after he was found unresponsive and hard to arouse Thursday morning. Patient is currently obtunded and unable to provide medical history. Medical history was obtained by his and son at the bedside. Patient was doing fairly well and went to sleep on Thursday and then Thursday morning when his was trying to arouse him he was very hard to arouse. They decided to bring him to the emergency room. Patient was evaluated in the emergency room and computed tomography scan of the brain showed large area of low attenuation involving the right temporal lobe and right parietal lobe suggesting for an acute or subacute MCA distribution stroke. Patient was admitted to the hospital for further evaluation. He is currently obtunded and not responding to verbal or painful stimuli. He slightly open his eyes to sternal rub. He was also found to have an underlying urinary tract infection and continued to spike fever despite being on IV ceftriaxone. Today, I discussed goals of care with his and son at bedside. They both wanted the patient to be comfortable only. They do not want any further testing or blood work. Patient is currently DNR/DNI. They elected to pursue comfort measures and hospice care. Patient would be made comfortable and consultation to hospice would be requested for the patient to be enrolled in hospice. We will continue IV morphine and IV Ativan as needed. Scopolamine patch ordered. We'll continue to monitor closely. All of their questions answered to their satisfaction.
[2016-09-29] MEDS ORDERED: SCOPOLAMINE 1.5MG/72HR PATCH TRANSDERM SCH (14:30)
--- NOTE | 2016-09-29 15:03 | P.PN ---
Subjective Principal diagnosis: Stroke The patient is an 86-year-old man presented to the hospital with left-sided weakness. The patient was found to have a large right MCA stroke. She didn't is less responsive and more lethargic today. He had a follow-up CT of the brain today which redemonstrated the right MCA stroke with slightly increased edema. There is no obvious midline shift. The patient was less alert today but with deep sternal rub he was able to respond to command such as open mouth squeeze hand and wiggle toes. Was also to able to whisper his name Renato. His family is at his bedside. The patient is currently DO NOT RESUSCITATE and hospice Objective - Vital Signs Vital signs: Vital Signs Temp 101 F H 09/29/16 11:48 Pulse 82 09/29/16 11:49 Resp 16 09/29/16 11:49 BP 135/62 09/29/16 11:48 Pulse Ox 97 09/29/16 11:48 Intake & Output 09/28/16 09/29/16 09/29/16 18:59 06:59 18:59 Intake Total 320 Output Total 300 Balance -300 320 Weight 100.698 kg 101.5 kg Intake: IV 320 0.9% NS @ 20 mL/HR 320 Output: Urine 300 Uretheral (Dang) 300 Other: Voiding Method Indwelling Catheter Indwelling Catheter Indwelling Catheter - Constitutional General appearance: Present: obese - EENT ENT: Present: hard of hearing - Neurologic Neurologic Comment(s): On neurologic examination the patient is snoring. On deep sternal rub he does fidget and groan. 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 Motor examination redemonstrates left flaccid hemiplegia - Labs CBC & Chem 7: 09/28/16 11:55 09/28/16 11:55 Labs: Abnormal Lab Results - Last 24 Hours (Table) 09/28/16 09/28/16 09/29/16 Range/Units 16:56 20:53 05:38 POC Glucose (mg/dL) 153 H 162 H (75-99) mg/dL Hemoglobin A1c (4.2-6.1) % Triglycerides 172 H (<150) mg/dL HDL Cholesterol 22 L (40-60) mg/dL 09/29/16 09/29/16 09/29/16 Range/Units 05:38 06:14 11:45 POC Glucose (mg/dL) 150 H 148 H (75-99) mg/dL Hemoglobin A1c 6.4 H (4.2-6.1) % Triglycerides (<150) mg/dL HDL Cholesterol (40-60) mg/dL Assessment and Plan (1) Cerebrovascular accident Status: Acute Code(s): I63.9 - CEREBRAL INFARCTION, UNSPECIFIED (2) Atrial fibrillation Status: Chronic Code(s): I48.91 - UNSPECIFIED ATRIAL FIBRILLATION Plan: The patient is an 86-year-old man with 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 He is also having urinary tract infection. He also has a multiple other medical conditions and he has been made DO NOT RESUSCITATE. He has been enrolled in hospice. Discussed patient's condition with family plan is to continue present care.
[2016-09-29] MEDS: MORPHINE SULFATE 2 MG/ML SYRINGE IVP PRN ×3 (15:18→21:40)
[2016-09-29] MEDS: LORazepam 2 MG/ML SYRINGE IV PRN ×2 (15:24→19:51)
[2016-09-30] MEDS: MORPHINE SULFATE 2 MG/ML SYRINGE IVP PRN ×4 (00:12→09:49)
[2016-09-30] MEDS: LORazepam 2 MG/ML SYRINGE IV PRN ×3 (01:14→11:05)
[2016-09-30 09:35] VITALS: BP 140/63; PULSE 104; RESP 24; TEMP 100.8
[2016-09-30] MEDS ORDERED: LORazepam 2 MG/ML SYRINGE IV PRN ×2 (11:12→12:19)
--- NOTE | 2016-09-30 11:14 | P.PN ---
Subjective Patient is on comfort measures/hospice care. He is obtunded. He appeared to [place] and uncomfortable breathing. He is having a lot of secretion. His lungs with gurgling sounds across the room. Objective - Vital Signs Vital signs: Vital Signs Temp 100.8 F H 09/30/16 09:33 Pulse 104 H 09/30/16 09:33 Resp 24 09/30/16 09:33 BP 140/63 09/30/16 09:33 Pulse Ox 93 L 09/30/16 09:33 Intake & Output 09/29/16 09/30/16 09/30/16 18:59 06:59 18:59 Intake Total 160 Output Total 900 450 Balance -900 -290 Weight 104 kg Intake: IV 160 0.9% NS @ 20 mL/HR 160 Output: Urine 900 450 Other: Voiding Method Indwelling Catheter Indwelling Catheter - Labs CBC & Chem 7: 09/28/16 11:55 09/28/16 11:55 Labs: Abnormal Lab Results - Last 24 Hours (Table) 09/29/16 Range/Units 11:45 POC Glucose (mg/dL) 148 H (75-99) mg/dL Assessment and Plan Plan: This is a 86-year-old gentleman with past medical history significant for chronic atrial fibrillation, type 2 diabetes mellitus, congestive heart failure , and mild cognitive impairment who was brought into the hospital by his family after he was found unresponsive and hard to arouse Thursday morning. Patient is currently obtunded and unable to provide medical history. Medical history was obtained by his and son at the bedside. Patient was doing fairly well and went to sleep on Thursday and then Thursday morning when his was trying to arouse him he was very hard to arouse. They decided to bring him to the emergency room. Patient was evaluated in the emergency room and computed tomography scan of the brain showed large area of low attenuation involving the right temporal lobe and right parietal lobe suggesting for an acute or subacute MCA distribution stroke. Patient was admitted to the hospital for further evaluation. He is currently obtunded and not responding to verbal or painful stimuli. He slightly open his eyes to sternal rub. He was also found to have an underlying urinary tract infection and continued to spike fever despite being on IV ceftriaxone. I discussed goals of care with his and son at bedside. They both wanted the patient to be comfortable only. They do not want any further testing or blood work. Patient is currently DNR/DNI. They elected to pursue comfort measures and hospice care. Patient would be made comfortable and consultation to hospice would be requested for the patient to be enrolled in hospice. Scopolamine patch ordered. We'll continue to monitor closely. Change when necessary morphine 2 morphine drip for better comfort and titrate as needed for respiratory rate of 10-15/m
[2016-09-30] MEDS ORDERED: MORPHINE SULFATE (100 MG/2 ML) 100 MG in SODIUM CHLORIDE 0.9% 100 ML IV SCH (11:15)
[2016-09-30] MEDS ORDERED: ACETAMINOPHEN SUPPOSITORY 650 MG SUPP RECTAL PRN (12:20)
[2016-09-30] MEDS ORDERED: BISACODYL 10 MG SUPP RECTAL PRN (12:21)
[2016-09-30] MEDS ORDERED: GLYCOPYRROLATE 0.2 MG/ML 2 ML VIAL IVP SCH (12:30)
--- NOTE | 2016-10-03 08:41 | EEG ---
DATE OF SERVICE: 09/29/2016 INDICATIONS FOR EXAMINATION: This patient is an 86-year-old male being evaluated for left-sided weakness and neglect. The patient has history of diabetes and atrial fibrillation. Patient with possible large stroke. AGE: 86Y EEG FINDINGS: A routine 21-channel, awake digital EEG recording was accomplished utilizing the 10 to 20 international system with bipolar and referential montages. The background activity in the most alert resting state consists of a low to medium amplitude, poorly developed and poorly sustained 4 to 5 Hz activity over the posterior head regions. This posterior rhythm attenuates minimally to eye opening. There is a small amount of low amplitude 18 to 20 Hz beta activity seen maximally over the anterior head regions. Muscle and movement artifact was observed on a few occasions during the tracing. Hyperventilation was not performed. Photic stimulation at flash frequencies of 2 to 30 Hz produced a minimal occipital driving response. No epileptiform discharges were seen. IMPRESSION: This EEG gives evidence of a severe widespread diffuse disturbance in cerebral function. The EEG failed to reveal any focal, lateralized or epileptiform abnormalities. Clinical correlation is recommended.
== END 2016-09-30 14:42 | disposition hospice, inpatient (51) | DRG 65 ==
LOC: EC 11:33 → 6SEL 13:14
PROVIDERS: ADMIT Internal Medicine; ATTEND Internal Medicine
DX: I63.511 Cerebral infarction due to unspecified occlusion or stenosis of right middle cerebral artery (principal); G81.94 Hemiplegia, unspecified affecting left nondominant side; I11.0 Hypertensive heart disease with heart failure; I50.9 Heart failure, unspecified; E11.40 Type 2 diabetes mellitus with diabetic neuropathy, unspecified; F03.90 Unspecified dementia, unspecified severity, without behavioral disturbance, psychotic disturbance, mood disturbance, and anxiety; N39.0 Urinary tract infection, site not specified; Z66 Do not resuscitate; Z51.5 Encounter for palliative care; I48.2 Chronic atrial fibrillation; M06.9 Rheumatoid arthritis, unspecified; E78.5 Hyperlipidemia, unspecified; N42.9 Disorder of prostate, unspecified; Z86.14 Personal history of Methicillin resistant Staphylococcus aureus infection; Z95.1 Presence of aortocoronary bypass graft; Z95.810 Presence of automatic (implantable) cardiac defibrillator; Z87.891 Personal history of nicotine dependence; Z89.429 Acquired absence of other toe(s), unspecified side; Z79.82 Long term (current) use of aspirin; Z79.84 Long term (current) use of oral hypoglycemic drugs; Z79.01 Long term (current) use of anticoagulants; Z79.899 Other long term (current) drug therapy
CPT/HCPCS: 36415; 51702; 70450; 71020; 80053; 80061; 81001; 82550; 82553; 83036; 84484; 85025; 85610; 85730; 93005; 93880; 95819; 96365; 99285

== ENCOUNTER 2016-09-30 14:51 | Inpatient (IN) | payer MEDICAID ==
[2016-09-30] MEDS ORDERED: ACETAMINOPHEN SUPPOSITORY 650 MG SUPP RECTAL PRN (15:16)
[2016-09-30] MEDS ORDERED: BISACODYL 10 MG SUPP RECTAL PRN (15:17)
[2016-09-30 15:37] VITALS: BMI 34.8
[2016-09-30 15:57] VITALS: RESP 18
[2016-09-30] MEDS ORDERED: SCOPOLAMINE 1.5MG/72HR PATCH TRANSDERM SCH (16:00)
[2016-09-30] MEDS: GLYCOPYRROLATE 0.2 MG/ML 2 ML VIAL IVP SCH ×2 (16:23→20:16)
[2016-09-30] MEDS: MORPHINE SULFATE 100 MG in SODIUM CHLORIDE 0.9% 100 ML IV SCH ×2 (18:08→18:31)
[2016-09-30] MEDS: LORazepam 2 MG/ML SYRINGE IV PRN (18:27)
[2016-10-01] MEDS: GLYCOPYRROLATE 0.2 MG/ML 2 ML VIAL IVP SCH ×3 (00:25→07:55)
[2016-10-01] MEDS: LORazepam 2 MG/ML SYRINGE IV PRN (07:55)
--- NOTE | 2016-10-01 11:10 | P.DS ---
Providers Date of admission: 09/30/16 14:51 Expected date of discharge: 10/01/16 Attending physician: Ever Baca Primary care physician: Ever Baca [facility] Course: Patient on 10/01/2016. Please refer to nursing staff documentation for exact time of . Patient was on hospice care. Below is a summary of this hospitalization. This is a 86-year-old gentleman with past medical history significant for chronic atrial fibrillation, type 2 diabetes mellitus, congestive heart failure, and mild cognitive impairment who was brought into the hospital by his family after he was found unresponsive and hard to arouse. Patient was evaluated in the emergency room and computed tomography scan of the brain showed large area of low attenuation involving the right temporal lobe and right parietal lobe suggesting for an acute or subacute MCA distribution stroke. Patient was admitted to the hospital for further evaluation. He was obtunded and not responding to verbal or painful stimuli. He was also found to have an underlying urinary tract infection and continued to spike fever despite being on IV ceftriaxone. I discussed goals of care with his and son at bedside. They both wanted the patient to be comfortable only. They do not want any further testing or blood work. Patient was DNR/DNI. They elected to pursue comfort measures and hospice care. Plan - Discharge Summary New Discharge Prescriptions: No Action RX: Tamsulosin HCl 0.4 mg PO HS RX: Lansoprazole [Prevacid] 30 mg PO DAILY RX: Folic Acid 1 mg PO HS RX: Aspirin 81 mg PO DAILY RX: Methotrexate Sodium (Pf) [Methotrexate 25 mg/ml Vial] 25 mg SQ FR RX: metFORMIN HCL [Glucophage] 500 mg PO BID #60 tab RX: Carvedilol [Coreg] 3.125 mg PO BID RX: Furosemide [Lasix] 60 mg PO DAILY RX: Warfarin Sodium [Coumadin] 2.5 mg PO [facility] RX: Levothyroxine Sodium [Synthroid] 25 mcg PO DAILY Warfarin Sodium [Warfarin Sodium] 5 mg PO SUMOWEFRSA Ergocalciferol [Vitamin D2] 50,000 unit PO WE Cetirizine HCl [Zyrtec] 10 mg PO DAILY RX: Simvastatin 20 mg PO DAILY Discharge Medication List RX: Aspirin 81 mg PO DAILY 02/01/14 [History] RX: Folic Acid 1 mg PO HS 02/01/14 [History] RX: Lansoprazole [Prevacid] 30 mg PO DAILY 10/01/14 [History] RX: Tamsulosin HCl 0.4 mg PO HS 02/01/14 [History] RX: Methotrexate Sodium (Pf) [Methotrexate 25 mg/ml Vial] 25 mg SQ FR 12/19/15 [ History] RX: metFORMIN HCL [Glucophage] 500 mg PO BID #60 tab 02/11/16 [Rx] RX: Carvedilol [Coreg] 3.125 mg PO BID 07/01/16 [History] RX: Furosemide [Lasix] 60 mg PO DAILY 07/01/16 [History] RX: Levothyroxine Sodium [Synthroid] 25 mcg PO DAILY 07/01/16 [History] RX: Warfarin Sodium [Coumadin] 2.5 mg PO TUTH 07/01/16 [History] Ergocalciferol [Vitamin D2] 50,000 unit PO WE 09/11/16 [History] Warfarin Sodium [Warfarin Sodium] 5 mg PO SUMOWEFRSA 09/11/16 [History] Cetirizine HCl [Zyrtec] 10 mg PO DAILY 09/28/16 [History] RX: Simvastatin 20 mg PO DAILY 09/28/16 [History] - Preliminary Cause of Preliminary Cause of : Right MCA infarct
== END 2016-10-01 12:18 | disposition expired | DRG 65 ==
LOC: 6SEL 14:51 → 4MS4W 17:49
PROVIDERS: ADMIT Internal Medicine; ATTEND Internal Medicine
DX: I63.511 Cerebral infarction due to unspecified occlusion or stenosis of right middle cerebral artery (principal); N39.0 Urinary tract infection, site not specified; E11.40 Type 2 diabetes mellitus with diabetic neuropathy, unspecified; I50.9 Heart failure, unspecified; I48.2 Chronic atrial fibrillation; G31.84 Mild cognitive impairment of uncertain or unknown etiology; Z85.828 Personal history of other malignant neoplasm of skin; Z86.14 Personal history of Methicillin resistant Staphylococcus aureus infection; Z66 Do not resuscitate; Z51.5 Encounter for palliative care; Z95.1 Presence of aortocoronary bypass graft; Z95.810 Presence of automatic (implantable) cardiac defibrillator; Z89.421 Acquired absence of other right toe(s); Z79.01 Long term (current) use of anticoagulants; Z79.84 Long term (current) use of oral hypoglycemic drugs; Z79.82 Long term (current) use of aspirin; Z79.899 Other long term (current) drug therapy